=== PATIENT | female | born 1935 | race Caucasian/White ===

== ENCOUNTER 2017-01-29 19:00 | Emergency (ER) | payer MEDICARE, OTHER ==
[2017-01-29 19:29] VITALS: BP 165/71
[2017-01-29] MEDS ORDERED: Sulfamethox/Trimethoprim DS 800/160* TAB PO ONE (21:05)
[2017-01-29] MEDS ORDERED: Phenazopyridine TAB* 100 MG PO ONE (21:06)
--- NOTE | 2017-01-29 21:26 | UC ---
Walter Dyer Benjamin, scribed for Jazlyn Yuen MD on 01/29/17 at 2106 . Complaint Female HPI - HPI Summary HPI Summary: 81yo female comes to for recurring UTI symptoms. Pt was dxed with UTI recently and completed the entire course of nitrofurantoin from 01/18 to 01/23. Pt was asymptomatic until yesterday but yesterday, pt noted pressure in bladder, and burning sensation after urination, but not during.Pt called her PCP, but won t be seen until 2 days a from now so decided to come in to get her condition checked out. Pt was fitted for a pessary before the last UTI, but is not currently wearing the pessary but wonders if the UTI is caused by that fitting of the pessary. Pt also reports having extra BM compared to regular. PMHx includes ovarian CA. FHx of breast CA, lung CA, and CAD. - History Of Current Complaint Chief Complaint: UCGU Stated Complaint: FREQUENT AND BURNING URINATION Time Seen by Provider: 01/29/17 20:48 Hx Obtained From: Patient ?: No Onset/Duration: Sudden Onset, Lasting Days - since yesteray, Still Present Timing: Constant Severity Initially: Moderate Severity Currently: Moderate Pain Intensity: 0 Pain Scale Used: 0-10 Numeric Character: Burning Aggravating Factor(s): Urination Alleviating Factor(s): Nothing Associated Signs And Symptoms: Positive: Negative Related Hx: Similar Episode/Dx as: - UTI - Risk Factors Ectopic Risk Factor: Negative Ovarian Torsion Risk Factor: Ovarian Cysts/Tumors - Allergies/Home Medications Allergies/Adverse Reactions: Allergies Allergy/AdvReac Type Severity Reaction Status Date / Time Codeine Allergy Severe HANDS Verified 01/29/17 19:29 ITCHING Penicillins Allergy Severe HANDS Verified 01/29/17 19:29 ITCHING Home Medications: Home Medications Amlodipine Besylate [Norvasc 10 mg tab] 10 mg PO DAILY 01/29/17 [History Confirmed 01/29/17] PMH/Surg Hx/FS Hx/Imm Hx Previously Healthy: No Cardiovascular History: Hypertension Cancer History: Other Other Cancer History: ovarian cancer - Surgical History Surgical History: Yes Surgery Procedure, Year, and Place: total hysterectomy,[facility] [place] - Family History Known Family History: Positive: Cardiac Disease, Other - breast and lung CA - Social History Occupation: Employed Full-time - still works as a [employer] Lives: Alone Alcohol Use: Rare Substance Use Type: None Smoking Status (MU): Former Smoker When Did the Patient Quit Smoking/Using Tobacco: when she was 21 yrs old - Immunization History Most Recent Influenza Vaccination: 2600-1127 Season Review of Systems Constitutional: Negative Skin: Negative Eyes: Negative ENT: Negative Respiratory: Negative Cardiovascular: Negative Gastrointestinal: Negative Genitourinary: Dysuria, Frequency Motor: Negative Neurovascular: Negative Musculoskeletal: Negative Neurological: Negative Psychological: Negative All Other Systems Reviewed And Are Negative: Yes Physical Exam Triage Information Reviewed: Yes Appearance: Well-Appearing, No Pain Distress, Well-Nourished Vital Signs: Initial Vital Signs Temp 98.2 F 01/29/17 19:28 Pulse 86 01/29/17 19:28 Resp 16 01/29/17 19:28 BP 165/71 01/29/17 19:28 Pulse Ox 98 01/29/17 19:28 Vital Signs Reviewed: Yes Eyes: Positive: Conjunctiva Clear ENT: Positive: Normal ENT inspection, Hearing grossly normal. Negative: Muffled /hoarse voice Neck: Positive: Supple, Nontender Respiratory: Positive: Lungs clear, Normal breath sounds, No respiratory distress Cardiovascular: Positive: RRR, No Murmur, Pulses Normal Abdomen Description: Positive: Nontender, No Organomegaly, Soft. Negative: CVA Tenderness (R), CVA Tenderness (L), Distended, Guarding, Hepatomegaly, McBurney' s Point Tenderness, Peritoneal Signs, Pulsatile Mass, Splenomegaly Bowel Sounds: Positive: Present Musculoskeletal: Positive: Strength Intact, ROM Intact Neurological: Positive: Alert, Muscle Tone Normal Psychological: Positive: Age Appropriate Behavior Skin Exam: Normal Skin: Negative: rashes Diagnostics - Laboratory Diagnostic Studies Completed/Ordered: UA: positive for protein, blood, and leukocyte esterase, otherwise normal urine. Complaint Female Dx - Course Course Of Treatment: High blood pressure noted. Allergies noted. 81yo female with recent dx of UTI on 01/17/17 presents with recurring symptoms since yesterday. Pt reports burning dysuria after voiding and pressure in her bladder. Pt has completed 7-day nitrofurantoin abx tx on 01/23/17. Pt denies pain anywhere. Examination does not reveal any significant findings. No CVA tenderness was noted. UA will be ordered to make an appropriate medical decision. urine is positive for protein, blood, and leukocyte esterase, otherwise normal. Pt will be discharged with a rx of Bactrim and Pyridium. Pt was advise to complete the course of her rx'ed abx. - Differential Dx/Diagnosis Differential Diagnosis/HQI/PQRI: Urinary Tract Infection, Other - cystocele Provider Diagnoses: Blood pressure under poor control. UTI. Discharge - Discharge Plan Condition: Stable Disposition: HOME Prescriptions: Phenazopyridine TAB* [Pyridium 100 mg TAB*] 100 mg PO TID #15 tab Sulfamethox/Trimethoprim DS* [Bactrim DS 800/160 TAB*] 1 tab PO BID #14 tab Patient Education Materials: Urinary Tract Infection in Women (ED) Referrals: Amanda Sutton NP [Primary Care Provider] - 2 Days (follow up regarding today's visit and have your blood pressure rechecked which was elevated tonight at 165/ 71) Additional Instructions: You were given your first dose of Bactrim DS antibiotic tonight and one pill of phenazopyridine 100mg which is a bladder anesthetic and turns the urine orange and helps with pain with urination. Please finish all of the Bactrim antibiotic (trimethoprim-sulfamethoxazole). You may save a few of the phenazopyridine to use if you get another UTI. You can safely take this before seeing a doctor for a UTI and it does not ruin the urine culture results. Thank you for helping us improve patient care by filling out the My Point Survey. RETURN TO URGENT CARE FOR ANY NEW OR WORSENING SYMPTOMS The documentation as recorded by the Walter salinas Benjamin accurately reflects the service I personally performed and the decisions made by me, Jazlyn Yuen MD.
== END 2017-01-29 21:20 | disposition home or self-care (01) ==
LOC: UCEAST 19:00
DX: N39.0 Urinary tract infection, site not specified (principal); I10 Essential (primary) hypertension; Z87.440 Personal history of urinary (tract) infections; Z85.43 Personal history of malignant neoplasm of ovary; Z90.710 Acquired absence of both cervix and uterus; Z88.5 Allergy status to narcotic agent; Z88.0 Allergy status to penicillin; Z87.891 Personal history of nicotine dependence
CPT/HCPCS: 81003; 87077; 87086; 87186; 99212; A9270-GY; G0463

== ENCOUNTER 2017-08-29 16:14 | Emergency (ER) | payer MEDICARE, OTHER ==
[2017-08-29 16:26] VITALS: BP 154/51
--- NOTE | 2017-08-29 17:27 | RAD ---
INDICATION: Chest pain and fever for 2 days. Congestion. COMPARISON: June 26, 2014 TECHNIQUE: Dual energy PA and routine lateral views of the chest were obtained. REPORT: Airspace consolidation at the RIGHT middle lobe without volume loss. Negative for pleural effusions. Elevated lung volumes. Rarefaction of the upper lung zone interstitial markings. Negative for pneumothorax. Cardiomegaly. Unremarkable central pulmonary vasculature. Moderately tortuous descending thoracic aorta. IMPRESSION: RIGHT middle lobe consolidation suspicious for pneumonia given the clinical context. Stigmata of chronic obstructive pulmonary disease and emphysema.
--- NOTE | 2017-08-29 17:55 | UC ---
Respiratory Complaint HPI - HPI Summary HPI Summary: c/o post nasal drip, fever and right chest pain behind her right breast for the past 2 days. DEnies SOB, CP palpitations. History of tobacco use in the past. Currently taking losartan, amlodipine and Zoloft for HTN and insomnia respectively. - History of Current Complaint Chief Complaint: UCGeneralIllness Stated Complaint: CONGESTED,FEVER Time Seen by Provider: 08/29/17 16:26 Hx Last Menstrual Period: post menopausal - Allergies/Home Medications Allergies/Adverse Reactions: Allergies Allergy/AdvReac Type Severity Reaction Status Date / Time Codeine Allergy Severe HANDS Verified 08/29/17 16:28 ITCHING Penicillins Allergy Severe HANDS Verified 08/29/17 16:28 ITCHING Home Medications: Home Medications Calcium Carbonate (Antacid) [Calcium Carbonate] 500 mg PO BID 08/29/17 [History Confirmed 08/29/17] Diphenhydramine-Acetaminophen [Tylenol Pm Extra Strength 500-25 mg] 2 tab PO DAILY 08/29/17 [History Confirmed 08/29/17] Kjqtcfijayiea-Pumynhgpic-Mbbur [Nyquil Severe Cold/Flu 5-6.25-10-325 mg/15Ml] 1 liq PO QPM PRN 08/29/17 [History Confirmed 08/29/17] Vitamin B2 100 mg PO DAILY 08/29/17 [History Confirmed 08/29/17] PMH/Surg Hx/FS Hx/Imm Hx Previously Healthy: Yes Cardiovascular History: Hypertension Psychological History: Other - insomnia Other Psychological History: insomnia - Surgical History Surgical History: Yes Surgery Procedure, Year, and Place: total hysterectomy,[facility] [place]. D&C - Family History Known Family History: Positive: Cardiac Disease, Other - breast and lung CA - Social History Alcohol Use: Rare Substance Use Type: None Smoking Status (MU): Former Smoker When Did the Patient Quit Smoking/Using Tobacco: when she was 21 yrs old - Immunization History Most Recent Influenza Vaccination: 2017 Review of Systems Constitutional: Fever Eyes: Negative ENT: Nasal Discharge Cardiovascular: Negative Gastrointestinal: Negative Is Patient Immunocompromised?: No All Other Systems Reviewed And Are Negative: Yes Physical Exam Triage Information Reviewed: Yes Appearance: Well-Appearing Vital Signs: Initial Vital Signs Temp 100.0 F 08/29/17 16:20 Pulse 94 08/29/17 16:20 Resp 18 01/05/18 16:20 BP 154/51 08/29/17 16:20 Pulse Ox 97 08/29/17 16:20 Vital Signs Reviewed: Yes Eye Exam: Normal ENT Exam: Other - cerumen b/l uses hearing aids ENT: Positive: Pharynx normal Neck exam: Normal Respiratory Exam: Normal Cardiovascular Exam: Normal Abdominal Exam: Normal UC Diagnostic Evaluation - Laboratory O2 Sat by Pulse Oximetry: 97 Respiratory Course/Dx - Course Course Of Treatment: CXR shows consolidation right lung. Will start antibiotics , rest and PO fluids, complete course of medication and follow up with primary care provider - Differential Dx/Diagnosis Provider Diagnoses: Right pneumonia. Cardiomegaly. COPD Discharge - Discharge Plan Condition: Stable Disposition: HOME Patient Education Materials: Bacterial Pneumonia (ED), COPD (Chronic Obstructive Pulmonary Disease) (ED) Referrals: Christi Richmond MD [Primary Care Provider] -
== END 2017-08-29 18:05 | disposition home or self-care (01) ==
LOC: UCEAST 16:14
DX: J18.9 Pneumonia, unspecified organism (principal); I51.7 Cardiomegaly; J44.9 Chronic obstructive pulmonary disease, unspecified; I10 Essential (primary) hypertension; G47.00 Insomnia, unspecified; Z88.5 Allergy status to narcotic agent; Z88.0 Allergy status to penicillin; Z87.891 Personal history of nicotine dependence
CPT/HCPCS: 71046; 87502; 99212; G0463

== ENCOUNTER 2018-02-16 10:22 | Emergency (ER) | payer MEDICARE, OTHER ==
[2018-02-16 10:35] VITALS: BP 153/78
--- NOTE | 2018-02-16 10:46 | UC ---
Eye Complaint HPI - HPI Summary HPI Summary: stye right lower eye lid for 3 days---has been using warm compresses-this morning it look "worse" than other days not has a purulent head. - History of Current Complaint Chief Complaint: UCEye Stated Complaint: RIGHT EYE COMPLAINT Time Seen by Provider: 02/16/18 10:35 Hx Obtained From: Patient Hx Last Menstrual Period: post menopausal ?: No Onset/Duration: Sudden Onset, Lasting Days - 3 Timing: Constant Severity Initially: Mild Severity Currently: Mild Location of Injury: Eye Lid (lower) Aggravating Factor(s): Nothing Alleviating Factor(s): Nothing Associated Signs And Symptoms: Positive: Swelling - Allergies/Home Medications Allergies/Adverse Reactions: Allergies Allergy/AdvReac Type Severity Reaction Status Date / Time codeine Allergy Intermediate Itching Verified 11/17/17 09:09 Penicillins Allergy Intermediate Itching Verified 11/17/17 09:09 PMH/Surg Hx/FS Hx/Imm Hx Previously Healthy: No Cardiovascular History: Hypertension Psychological History: Depression - Surgical History Surgical History: Yes Surgery Procedure, Year, and Place: total hysterectomy,[facility] [place]. D&C - Family History Known Family History: Positive: Cardiac Disease, Other - breast and lung CA - Social History Occupation: Retired Lives: With Family Alcohol Use: Occasionally Substance Use Type: None Smoking Status (MU): Former Smoker When Did the Patient Quit Smoking/Using Tobacco: when she was 21 yrs old - Immunization History Most Recent Influenza Vaccination: 2017 Review of Systems Constitutional: Negative Skin: Negative Eyes: Negative, Other - stye below lashes lower medial aspect of right eye ENT: Negative Respiratory: Negative Cardiovascular: Negative Gastrointestinal: Negative Genitourinary: Negative Motor: Negative Neurovascular: Negative Musculoskeletal: Negative Neurological: Negative Psychological: Negative Is Patient Immunocompromised?: No All Other Systems Reviewed And Are Negative: Yes Physical Exam Triage Information Reviewed: Yes Appearance: Well-Appearing, No Pain Distress, Well-Nourished Vital Signs: Initial Vital Signs Temp 98.3 F 02/16/18 10:30 Pulse 80 02/16/18 10:30 Resp 16 02/16/18 10:30 BP 153/78 02/16/18 10:30 Pulse Ox 98 02/16/18 10:30 Vital Signs Reviewed: Yes Eye Exam: Other Eyes: Positive: Conjunctiva Clear - left, Other: - 3 mm erthema below lashes medially right eye--has 1 mm purulent center ENT Exam: Normal ENT: Positive: Normal ENT inspection, Hearing grossly normal. Negative: Nasal congestion, Trismus, Muffled voice, Hoarse voice Dental Exam: Normal Neck exam: Normal Neck: Positive: Supple, Nontender Respiratory Exam: Normal Respiratory: Positive: Chest non-tender, No respiratory distress, No accessory muscle use Cardiovascular Exam: Normal Cardiovascular: Positive: RRR, Pulses Normal, Brisk Capillary Refill Musculoskeletal Exam: Normal Musculoskeletal: Positive: Strength Intact, ROM Intact, No Edema Neurological Exam: Normal Neurological: Positive: Alert, Muscle Tone Normal Psychological Exam: Normal Skin Exam: Normal Eye Complaint Course/Dx - Course Course Of Treatment: warm compress may use erythomycin eye ointment, follow with Dr. Boss if not resolved in 2-3 days, follow blood pressure with pcp - Differential Dx/Diagnosis Provider Diagnoses: Stye right lower lid, hypertension in poor control Discharge - Sign-Out/Discharge Documenting (check all that apply): Discharge/Admit/Transfer - Discharge Plan Condition: Stable Disposition: HOME Prescriptions: Erythromycin OPTH OINT* [Erythromycin 0.5% OPTH OINT*] 1 applic RIGHT EYE TID # 1 ophth.oint Patient Education Materials: Stye (ED), Hypertension (ED), Warm Compress or Soak (ED) Referrals: Porfirio Boss MD [Medical Doctor] - 4 Days Christi Richmond MD [Primary Care Provider] - 2 Weeks - Billing Disposition and Condition Condition: STABLE Disposition: Home
== END 2018-02-16 10:51 | disposition home or self-care (01) ==
LOC: UCEAST 10:22
DX: H00.022 Hordeolum internum right lower eyelid (principal); I10 Essential (primary) hypertension; Z88.0 Allergy status to penicillin; Z88.5 Allergy status to narcotic agent; Z87.891 Personal history of nicotine dependence
CPT/HCPCS: 99212; G0463

== ENCOUNTER 2018-05-30 09:37 | Emergency (ER) | payer MEDICARE, OTHER ==
--- OUTSIDE RECORDS SUMMARY | 2018-05-30 09:43 | XMS REPORT ---
:1935 External Reference #:[id number] Author Organization [employer] Address [address] [facility] [place] [address] Phone [phone] Care Team Providers Name Role Phone Christi Richmond MD Care Team Information Car Examiner Unavailable Christi Richmond MD Primary Care Physician Unavailable Payers Type Date Identification Numbers Payment Provider Subscriber Commercial Policy Number: [id number] Amer Prog/Todays Options Zena Power PayID: [id number] [address] [address] Attn: [place] [address] Medigap Part B Effective: Policy Number: [employer] Zena [employer] 2014 [id number] Group Number: [id number] [address] PayID: [id number] [place] [address] Commercial Effective: Policy Number: Amer Prog/Todays Zena [employer] 2010 [id number] Options Expires: 2015 Group Number: [id number] [address] [address] PayID: [id number] Attn: [place] [address] Medigap Part B Expires: 2014 Policy Number: [employer] Avery Power [id number] Group Number: [id number] [address] PayID: [id number] [place] [address] Advance Directives Type Date Description Status Comment Other Directive 10/23/2014 Health Care Proxy Current and Verified Problems Date Description Provider Status Onset: 09/15/2015 Essential hypertension Flako Vicente M.D. Active Onset: 02/13/2010 Pure hypercholesterolemia Lacy Metcalf M.D., FACP Active Onset: 02/13/2010 Malignant tumor of ovary Lacy Metcalf M.D., EMMANUELP Active Family History Date Family Member(s) Problem(s) Comments General Heart Disease General Cancer : (age 92 Father due to Natural Years) Causes Father Depression Age 92 Mother Age 102 Mother 99 First Daughter 57 Second Daughter 55 Siblings 8 Siblings Brother Heart disease, due to [place] Brother - Lung Cancer Sister - Breast Cancer : (age 77 First Brother due to Cancer, 1 Brother - Years) Lung [place] (Age 75) First Sister Cancer, Breast : (age 70 First Sister due to Cancer, Years) Breast Second Sister Cancer, Breast Second Sister 69 Social History Type Date Description Comments Marital Status Lives With Alone 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 Do you have problems with snoring, daytime fatigue: no snoring , no daytime fatigue. Allergies, Adverse Reactions, Alerts Date Description Reaction Status Severity Comments 02/09/2010 Penicillin pt unsure active has used since without problems 02/09/2010 Tylenol W/Codeine pt unsure, itching active has used since hands without problems Medications Medication Date Status Form Strength Qnty SIG Indications Ordering Provider Losartan 11/19 Active Tablets 100-25mg 30tab 1 by I10 Potassium/Hydrochloro /2017 s mouth Varn, thiazide every N.P. day Amlodipine Besylate 09/18 Active Tablets 10mg 90tab Take 1 I10 s Tablet Varn, By Mouth N.P. Every Day Sertraline HCL 02/09 Active Tablets 50mg 90tab Take 1 s Tablet Varn, By Mouth N.P. Daily Multi-Vitamin Active Tablets 1 po qd Unknown / Vitamin B Complex Active Capsules 1 po qd Unknown / Calcium Active Tablets 500mg bid Unknown / Glucosamine Active Capsules 1500mg po qd Unknown Chondroitin Complex /0000 Cranberry Extract Active Capsules 100mg once Unknown / daily Aspirin Adult Low Active Chewtabs 81mg 90uni 1 po qd Unknown Strength ts Tylenol PM Active Tablets 2 Unknown / tablets at bedtime [place] 3 Active Capsules 1200mg po qd Unknown Vitamin D-1000 Active Tablets 1000Unit 1 po qd Unknown Coq-10 Active Capsules 100mg 1 by Unknown / mouth every day Vitamin B-2 Active Tablets 100mg qd Unknown Biotin Active Capsules 5000mcg 1 tab Unknown daily otc Erythromycin 02/16 Hx Ointment 5mg/GM 1unit Three s Times - Daily 03/17 Belsomra 05/01 Hx Tablets 10mg 30tab one by G47.00 s mouth at Varn, - bedtime N.P. 10/29 needed sleep Vicodin 07/24 Hx Tablets 5-300mg 30tab take 1 s by mouth Varn, - every 6 N.P. 08/07 hours needed Rozerem 03/20 Hx Tablets 8mg 15tab one by s mouth at Varn, - bedtime N.P. 09/13 needed sleep Vistaril 03/14 Hx Capsules 25mg 30cap One po 780.52 s hs Varn, - N.P. 03/20 Amlodipine Besylate 11/29 Hx Tablets 5mg 90tab 1 by I10 s mouth Varn, - every N.P. Losartan Potassium 11/14 Hx Tablets 100mg 90tab Take 1 I10 s Tablet Varn, - By Mouth N.P. 03/17 Day Azithromycin 08/19 Hx Tablets 250mg 6tabs 2 tab by 466.0 mouth Devin, - day 1 M.D. 09/08 then tab by mouth day 2-5 Altace 08/12 Hx Capsules 2.5mg 30cap take 1 401.1 s capsule Devin, - by mouth M.D. 09/08 daily Lisinopril 08/12 Hx Tablets 2.5mg 30tab 1 by 401.1 s mouth Varn, - every N.P. Hydrochlorothiazide 01/05 Hx Tablets 25mg 135ta 1 by 401.1 bs mouth Tea, - every M.D., 09/06 day Atorvastatin Calcium 05/24 Hx Tablets 10mg 45tab 1/2 by 272.0 s mouth Tea, - every M.D., 11/[address] [facility] bedtime Ergocalciferol 02/02 Hx Capsules [id number] 8caps 1 cap by 268.9 mouth Tea, - every M.D., 01/05 week Simvastatin 10/30 Hx Tablets 10mg 90tab Take 1 272.0 s Tablet Tea, - AT M.D., 05/24 Bedtime Sulfamethoxazole/Trim 10/19 Hx Tablets 800-160mg 20tab one po 599.0 Amanda ethoprim s bid for Varn, - 10 days N.P. 10/29 Mycelex Troches 11/14 Hx 20uni Use as 112.0 ts directed Tea, - . M.D., 01/29 Azithromycin 06/12 Hx Tablets 250mg 1ZPac two tabs k day one, Tea, - one M.D., 06/17 daily till gone Flovent HFA 06/12 Hx Aerosol 44mcg/Act 10.60 2 puffs 0gm twice Tea, - daily M.D., 11/14 Zocor 02/09 Hx Tablets 10mg 90tab 1 tablet s at Tea, - bedtime M.D., 10/30 Fosamax D 02/09 Hx Tablets 70mg 12tab one s tablet Tea, - weekly M.D., 02/13 Levofloxacin Hx Tablets 500mg take 1 Unknown /0000 tablet - by mouth 09/04 daily for 7 days Medications Administered in Office Medication Date Status Form Strength Qnty SIG Indications Ordering Provider Technetium TC Administered Injection Flako Hernandez 99M 018 Bam Vicente Tetrofosmin, Per Unit Dose Up To 40 Millicuries Immunizations CPT Code Status Date Vaccine Lot # [id number] Given 04/30/2017 Flu Vaccine NOS Q2039 Given 05/29/2016 Flu Vaccine NOS [id number] Given 03/14/2015 Pneumococcal Conjugate Vaccine 13 Valent For [id number] Intramuscular Use 38696 Given 06/24/2014 Fluzone High Dose 58822 Given 05/24/2013 Flu Vaccine Split Virus Preservative Free For [id number] Indiv 3Yr Older 74798 Given 02/02/2013 Tdap - Tetanus/Diptheria/Acellular Pertussis [id number] Q2038 Given 05/20/2012 Fluzone Vaccine [id number] Q2038 Given 06/03/2011 Fluzone Vaccine [id number] 68614 Given 06/12/2010 Influenza Virus 3Yrs & Over 02202 Given 09/04/2009 Influenza Virus Vaccine, Pandemic Formulation 25842 Given 05/29/2009 Influenza Virus 3Yrs & Over 02823 Given 06/13/2008 Influenza Virus 3Yrs & Over 87167 Given 06/13/2008 Influenza Virus 3Yrs & Over 44738 Given 01/12/2008 Zoster (Zostavax) 50017 Given 06/08/2007 Influenza Virus 3Yrs & Over 61027 Given 06/08/2007 Influenza Virus 3Yrs & Over 95693 Given 06/23/2006 Influenza Virus 3Yrs & Over 98621 Given 06/23/2006 Influenza Virus 3Yrs & Over Vital Signs Date Vital Result Comment 05/05/2018 Height 60 inches 5'0" Weight 143.00 lb Heart Rate 70 /min BP Systolic Sitting 130 mmHg BP Diastolic Sitting 68 mmHg Body Temperature 98.4 F O2 % BldC Oximetry 96 % BMI (Body Mass Index) 27.9 kg/m2 03/18/2018 Weight 144.00 lb Heart Rate 68 /min BP Systolic Sitting 130 mmHg lue reg cuff BP Diastolic Sitting 60 mmHg lue reg cuff BP Systolic Standing 124 mmHg BP Diastolic Standing 62 mmHg Respiratory Rate 16 /min Ejection Fraction 60-65% 10/07/2017 echo 11/19/2017 Weight 144.00 lb Heart Rate 67 /min BP Systolic 140 mmHg BP Diastolic 60 mmHg Body Temperature 98.1 F O2 % BldC Oximetry 95 % 10/29/2017 Weight 146.00 lb Heart Rate 71 /min BP Systolic 162 mmHg BP Diastolic 60 mmHg Body Temperature 97.4 F O2 % BldC Oximetry 94 % 10/15/2017 Height 59 inches 4'11" Weight 148.00 lb with out shoes Heart Rate 76 /min BP Systolic Sitting 118 mmHg Rue reg cuff BP Diastolic Sitting 74 mmHg Rue reg cuff BP Systolic Standing 120 mmHg Rue reg cuff BP Diastolic Standing 62 mmHg Rue reg cuff Respiratory Rate 17 /min BMI (Body Mass Index) 29.9 kg/m2 Ejection Fraction 60-65% date 10/07/17 ECHO 09/10/2017 Height 59 inches 4'11" Weight 144.00 lb No shoes Heart Rate 66 /min BP Systolic Sitting 138 mmHg Rue lrg cuff BP Diastolic Sitting 64 mmHg Rue lrg cuff BP Systolic Standing 132 mmHg Rue lrg cuff BP Diastolic Standing 64 mmHg Rue lrg cuff Respiratory Rate 15 /min BMI (Body Mass Index) 29.1 kg/m2 Ejection Fraction 55-60% 07/11/2014-echo 05/01/2017 Height 60 inches 5'0" Weight 147.00 lb Heart Rate 71 /min BP Systolic 130 mmHg BP Diastolic 70 mmHg Body Temperature 98.4 F O2 % BldC Oximetry 97 % BMI (Body Mass Index) 28.7 kg/m2 12/11/2016 Weight 144.00 lb Heart Rate 90 /min BP Systolic 158 mmHg BP Diastolic 72 mmHg Body Temperature 97.9 F O2 % BldC Oximetry 97 % 10/15/2016 Height 60 inches 5'0" Weight 148.00 lb Heart Rate 76 /min BP Systolic 136 mmHg BP Diastolic 80 mmHg Body Temperature 97.8 F O2 % BldC Oximetry 95 % BMI (Body Mass Index) 28.9 kg/m2 09/13/2016 Height 60 inches 5'0" Weight 145.00 lb with shoes Heart Rate 70 /min BP Systolic Sitting 158 mmHg Rue reg cuff BP Diastolic Sitting 60 mmHg Rue reg cuff BP Systolic Standing 140 mmHg Rue reg cuff BP Diastolic Standing 64 mmHg Rue reg cuff Respiratory Rate 17 /min BMI (Body Mass Index) 28.3 kg/m2 Ejection Fraction 55-60% date 07/11/2014 ECHO 05/24/2016 Height 60 inches 5'0" Weight 147.00 lb BP Systolic 118 mmHg BP Diastolic 76 mmHg Pain Level 0 BMI (Body Mass Index) 28.7 kg/m2 04/11/2016 Height 60 inches 5'0" Weight 144.50 lb Heart Rate 73 /min BP Systolic Sitting 138 mmHg BP Diastolic Sitting 66 mmHg O2 % BldC Oximetry 98 % BMI (Body Mass Index) 28.2 kg/m2 01/08/2016 Height 59.5 inches 4'11.50" Weight 147.00 lb Heart Rate 84 /min BP Systolic Sitting 128 mmHg BP Diastolic Sitting 60 mmHg Respiratory Rate 15 /min Body Temperature 98.0 F O2 % BldC Oximetry 98 % BMI (Body Mass Index) 29.2 kg/m2 10/19/2015 Height 59.5 inches 4'11.50" Weight 149.00 lb Heart Rate 84 /min BP Systolic Sitting 132 mmHg BP Diastolic Sitting 82 mmHg Respiratory Rate 15 /min Body Temperature 98.3 F O2 % BldC Oximetry 98 % BMI (Body Mass Index) 29.6 kg/m2 09/18/2015 Height 59.5 inches 4'11.50" Weight 147.00 lb Heart Rate 68 /min BP Systolic Sitting 130 mmHg BP Diastolic Sitting 80 mmHg Respiratory Rate 15 /min Body Temperature 98.0 F O2 % BldC Oximetry 98 % BMI (Body Mass Index) 29.2 kg/m2 09/15/2015 Height 59.5 inches 4'11.50" Weight 146.00 lb w/o shoes Heart Rate 70 /min reg BP Systolic Sitting 126 mmHg Rue, reg cuff BP Diastolic Sitting 84 mmHg Rue, reg cuff BP Systolic Standing 122 mmHg Rue BP Diastolic Standing 78 mmHg Rue Respiratory Rate 16 /min BMI (Body Mass Index) 29.0 kg/m2 Ejection Fraction 55-60% 07/11/14 echo 07/24/2015 BP Systolic Sitting 150 mmHg BP Diastolic Sitting 65 mmHg Body Temperature 98.4 F Pain Level 3 O2 % BldC Oximetry 97 % 03/14/2015 Height 60.25 inches 5'0.25" Weight 144.00 lb Heart Rate 65 /min BP Systolic Sitting 136 mmHg BP Diastolic Sitting 57 mmHg BMI (Body Mass Index) 27.9 kg/m2 11/29/2014 Weight 144.00 lb Heart Rate 72 /min BP Systolic Sitting 152 mmHg BP Diastolic Sitting 62 mmHg Body Temperature 97.6 F 11/14/2014 Weight 138.00 lb Heart Rate 72 /min BP Systolic Sitting 158 mmHg BP Diastolic Sitting 62 mmHg Body Temperature 97.0 F 09/09/2014 Height 59.75 inches 4'11.75" Weight 138.00 lb no shoes Heart Rate 69 /min BP Systolic 150 mmHg Ra, reg cuff BP Diastolic 82 mmHg Ra, reg cuff BP Systolic Sitting 152 mmHg LA, reg cuff BP Diastolic Sitting 76 mmHg LA, reg cuff BP Systolic Standing 146 mmHg LA BP Diastolic Standing 74 mmHg LA Respiratory Rate 16 /min BMI (Body Mass Index) 27.2 kg/m2 09/09/2014 Height 59.75 inches 4'11.75" Weight 139.75 lb Heart Rate 78 /min BP Systolic Sitting 138 mmHg BP Diastolic Sitting 70 mmHg Body Temperature 98.8 F O2 % BldC Oximetry 98 % BMI (Body Mass Index) 27.5 kg/m2 08/19/2014 Height 59.75 inches 4'11.75" Weight 140.00 lb Heart Rate 70 /min BP Systolic Sitting 132 mmHg BP Diastolic Sitting 60 mmHg Respiratory Rate 24 /min Body Temperature 99.8 F BMI (Body Mass Index) 27.6 kg/m2 08/12/2014 Height 59.75 inches 4'11.75" Weight 139.00 lb Heart Rate 63 /min BP Systolic Sitting 162 mmHg BP Diastolic Sitting 63 mmHg BP Systolic Recheck 150 mmHg BP Diastolic Recheck 67 mmHg BMI (Body Mass Index) 27.4 kg/m2 07/28/2014 Height 59.75 inches 4'11.75" Weight 138.00 lb Heart Rate 62 /min BP Systolic 110 mmHg BP Diastolic 62 mmHg BP Systolic Recheck 138 mmHg BP Diastolic Recheck 68 mmHg Body Temperature 96.9 F BMI (Body Mass Index) 27.2 kg/m2 06/30/2014 Height 59.75 inches 4'11.75" Weight 142.00 lb Heart Rate 68 /min BP Systolic Sitting 138 mmHg BP Diastolic Sitting 62 mmHg BMI (Body Mass Index) 28.0 kg/m2 03/08/2014 Height 59.75 inches 4'11.75" Weight 141.25 lb Heart Rate 64 /min BP Systolic Sitting 150 mmHg BP Diastolic Sitting 60 mmHg BMI (Body Mass Index) 27.8 kg/m2 01/05/2014 Weight 142.00 lb Heart Rate 76 /min BP Systolic Sitting 152 mmHg BP Diastolic Sitting 68 mmHg Body Temperature 98.7 F 05/24/2013 Weight 142.00 lb Heart Rate 70 /min BP Systolic Sitting 128 mmHg BP Diastolic Sitting 80 mmHg 02/02/2013 Height 59.75 inches 4'11.75" Weight 140.00 lb Heart Rate 64 /min BP Systolic Sitting 154 mmHg BP Diastolic Sitting 64 mmHg BMI (Body Mass Index) 27.6 kg/m2 10/19/2012 Height 60 inches 5'0" Weight 139.00 lb Heart Rate 76 /min BP Systolic Sitting 156 mmHg BP Diastolic Sitting 60 mmHg Body Temperature 97.5 F Tympanically BMI (Body Mass Index) 27.1 kg/m2 08/12/2012 Height 60 inches 5'0" Weight 138.00 lb Heart Rate 70 /min BP Systolic Sitting 124 mmHg BP Diastolic Sitting 74 mmHg BMI (Body Mass Index) 26.9 kg/m2 10/01/2011 Height 60 inches 5'0" Weight 142.00 lb Heart Rate 72 /min BP Systolic Sitting 138 mmHg BP Diastolic Sitting 72 mmHg BMI (Body Mass Index) 27.7 kg/m2 01/29/2011 Height 60.25 inches 5'0.25" Weight 140.00 lb Heart Rate 66 /min BP Systolic Sitting 126 mmHg BP Diastolic Sitting 70 mmHg BMI (Body Mass Index) 27.1 kg/m2 11/14/2010 Weight 143.00 lb Heart Rate 64 /min BP Systolic 110 mmHg BP Diastolic 70 mmHg Body Temperature 98.3 F 06/12/2010 Weight 145.50 lb Heart Rate 54 /min BP Systolic 118 mmHg BP Diastolic 76 mmHg Body Temperature 98.1 F Results Test Date Test Result H/L Range Note Lipid Profile (Trig/Chol/HDL) 05/01/2018 Triglycerides 148 mg/dL 1 Cholesterol 233 mg/dL 2 HDL Cholesterol 66.0 mg/dL 3 LDL Cholesterol 137 mg/dL 4 Comp Metabolic Panel 05/01/2018 Sodium 141 mmol/L 135-145 Potassium 4.6 mmol/L 3.5-5.0 Chloride 105 mmol/L 101-111 Co2 Carbon Dioxide 29 mmol/L 22-32 Anion Gap 7 mmol/L 2-11 Glucose 100 mg/dL 70-100 Blood Urea Nitrogen 20 mg/dL 6-24 Creatinine 0.71 mg/dL 0.51-0.95 BUN/Creatinine Ratio 28.2 High 8-20 Calcium 9.6 mg/dL 8.6-10.3 Total Protein 6.8 g/dL 6.4-8.9 Albumin 4.6 g/dL 3.2-5.2 Globulin 2.2 g/dL 2-4 Albumin/Globulin Ratio 2.1 1-3 Total Bilirubin 0.40 mg/dL 0.2-1.0 Alkaline Phosphatase 60 U/L 34-104 Alt 18 U/L 7-52 Ast 27 U/L 13-39 Egfr Non- 78.8 >60 Egfr 95.4 >60 5 Laboratory test finding 11/15/2017 Blood Urea Nitrogen BUN 28 mg/dL High 6 -24 Creatinine 11/15/2017 Creatinine 0.67 mg/dL 0.51-0.95 Egfr Non- 84.5 >60 Egfr 108.6 >60 6 Rapid Influenza A & B 08/29/2017 Influenza A Molecular NEGATIVE Negative 7 Molecular Influenza B Molecular NEGATIVE Negative Laboratory test finding 05/08/2017 CA 125 (Ovarian Cancer Ag) 19.7 U/mL 0 -35 8 Lipid Profile 04/24/2017 Triglycerides 97 mg/dL 9 (Trig/Chol/HDL) Cholesterol 237 mg/dL 10 HDL Cholesterol 69.3 mg/dL 11 LDL Cholesterol 148 mg/dL 12 Comp Metabolic Panel 04/24/2017 Sodium 139 mmol/L 133-145 Potassium 4.6 mmol/L 3.5-5.0 Chloride 103 mmol/L 101-111 Co2 Carbon Dioxide 29 mmol/L 22-32 Anion Gap 7 mmol/L 2-11 Glucose 90 mg/dL 70-100 Blood Urea Nitrogen 21 mg/dL 6-24 Creatinine 0.71 mg/dL 0.51-0.95 BUN/Creatinine Ratio 29.6 High 8-20 Calcium 9.7 mg/dL 8.6-10.3 Total Protein 6.9 g/dL 6.4-8.9 Albumin 4.3 g/dL 3.2-5.2 Globulin 2.6 g/dL 2-4 Albumin/Globulin Ratio 1.7 1-3 Total Bilirubin 0.60 mg/dL 0.2-1.0 Alkaline Phosphatase 58 U/L 34-104 Alt 15 U/L 7-52 Ast 25 U/L 13-39 Egfr Non- 79.0 >60 Egfr 101.6 >60 13 Laboratory test 04/24/2017 TSH (Thyroid Stim 1.33 mcIU/mL 0.34-5.60 14 finding Horm) Urine Culture And 01/29/2017 Urine Culture SEE RESULT BELOW 15, 16 Sensitivities Poc Urinalysis 01/29/2017 Poc Glucose, Negative Negative Urine Poc Bilirubin, Urine Negative Negative Poc Ketone, Urine Negative Negative Poc Specific [place], Urine 1.020 1.010-1.030 Poc Blood, Urine 2+ Negative Poc pH, Urine 7.0 5-9 Poc Protein, Urine 2+ Negative Poc Urobilinogen, Urine 0.2 Negative Poc Nitrite, Urine Negative Negative Poc Leukocytes, Urine 3+ Negative Poc Color, Urine Yellow Poc Clarity, Urine Cloudy 17 Laboratory test finding 04/11/2016 CA 125 (Ovarian Cancer Ag) 21.7 U/mL 0 -35 18 Vitamin D Total 25(Oh) 42.6 ng/mL 30-50 Lipid Profile (Trig/Chol/HDL) 04/08/2016 Triglycerides 89 mg/dL 19 Cholesterol 206 mg/dL 20 HDL Cholesterol 59.7 mg/dL 21 LDL Cholesterol 129 mg/dL 22 Comp Metabolic Panel 04/08/2016 Sodium 139 mmol/L 133-145 Potassium 4.1 mmol/L 3.5-5.0 Chloride 106 mmol/L 101-111 Co2 Carbon Dioxide 27 mmol/L 22-32 Anion Gap 6 mmol/L 2-11 Glucose 92 mg/dL 70-100 Blood Urea Nitrogen 18 mg/dL 6-24 Creatinine 0.72 mg/dL 0.51-0.95 BUN/Creatinine Ratio 25.0 High 8-20 Calcium 9.3 mg/dL 8.6-10.3 Total Protein 6.6 g/dL 6.4-8.9 Albumin 4.1 g/dL 3.2-5.2 Globulin 2.5 g/dL 2-4 Albumin/Globulin Ratio 1.6 1-3 Total Bilirubin 0.30 mg/dL 0.2-1.0 Alkaline Phosphatase 58 U/L 34-104 Alt 16 U/L 7-52 Ast 26 U/L 13-39 Egfr Non- 77.9 >60 Egfr 100.2 >60 23 Laboratory test 04/08/2016 TSH (Thyroid Stim 1.28 mcIU/mL 0.34-5.60 24 finding Horm) Laboratory test 05/11/2015 Cytology Non-Civil Service Worker SEE RESULT BELOW 25 finding Laboratory test 03/28/2015 Vitamin D Total 37.3 ng/mL 30-50 finding 25(Oh) TSH (Thyroid Stim Horm) 1.25 ?IU/mL 0.34-5.60 Laboratory test finding 11/25/2014 Creatine Kinase 89 U/L 10-223 26, 27 Basic Metabolic Panel 11/25/2014 Sodium 142 mmol/L 133-145 26 Potassium 4.1 mmol/L 3.5-5.0 26 Chloride 106 mmol/L 101-111 26 Co2 Carbon Dioxide 29 mmol/L 22-32 26 Anion Gap 7 mmol/L 2-11 26 Glucose 93 mg/dL 70-100 26 Blood Urea Nitrogen 21 mg/dL 6-24 26 Creatinine 0.76 mg/dL 0.51-0.95 26 BUN/Creatinine Ratio 27.6 High 8-20 26 Calcium 9.5 mg/dL 8.6-10.3 26 Egfr Non- 73.6 >60 26 Egfr 94.7 >60 26, 28 Lipid Profile (Trig/Chol/HDL) 11/25/2014 Triglycerides 105 mg/dL 26, 29 Cholesterol 200 mg/dL 26, 30 HDL Cholesterol 64.8 mg/dL 26, 31 LDL Cholesterol 114 mg/dL 26, 32 Laboratory test finding 06/26/2014 Troponin I 0.01 ng/mL <0.03 33 CBC Auto Diff 06/26/2014 White Blood Count 5.3 10^3/uL 4.8-10.8 Red Blood Count 4.03 10^6/uL 4.0-5.4 Hemoglobin 12.5 g/dL 12.0-16.0 Hematocrit 37 % 35-47 Mean Corpuscular Volume 92 fL 80-97 Mean Corpuscular Hemoglobin 31 pg 27-31 Mean Corpuscular HGB Conc 34 g/dL 31-36 Red Cell Distribution Width 13 % 10.5-15 Platelet Count 258 10^3/uL 150-450 Mean Platelet Volume 7 um3 Low 7.4-10.4 Abs Neutrophils 2.9 10^3/uL 1.5-7.7 Abs Lymphocytes 1.6 10^3/uL 1.0-4.8 Abs Monocytes 0.6 10^3/uL 0-0.8 Abs Eosinophils 0.2 10^3/uL 0-0.6 Abs Basophils 0 10^3/uL 0-0.2 Abs Nucleated RBC 0.01 10^3/uL Granulocyte % 54.5 % 38-83 Lymphocyte % 31.1 % 25-47 Monocyte % 10.5 % High 1-9 Eosinophil % 3.1 % 0-6 Basophil % 0.8 % 0-2 Nucleated Red Blood Cells % 0.2 Comp Metabolic Panel 06/26/2014 Sodium 139 mmol/L 133-145 Potassium 3.6 mmol/L Low 3.7-5.6 Chloride 105 mmol/L 101-111 Co2 Carbon Dioxide 27 mmol/L 22-32 Anion Gap 7 mmol/L 2-11 Glucose 104 mg/dL High 70-100 Blood Urea Nitrogen 22 mg/dL 6-24 Creatinine 0.78 mg/dL 0.51-0.95 BUN/Creatinine Ratio 28.2 High 8-20 Calcium 9.1 mg/dL 8.6-10.3 Total Protein 6.3 g/dL Low 6.4-8.9 Albumin 4.1 g/dL 3.2-5.2 Globulin 2.2 g/dL 2-4 Albumin/Globulin Ratio 1.9 1-3 Total Bilirubin 0.30 mg/dL 0.2-1.0 Alkaline Phosphatase 52 U/L 34-104 Alt 18 U/L 7-52 Ast 27 U/L 13-39 Egfr Non- 71.4 >60 Egfr 91.9 >60 34 Laboratory test finding 06/26/2014 Troponin I 0.01 ng/mL <0.03 35 Comp Metabolic Panel 03/11/2014 Sodium 139 mmol/L 133-145 Potassium 3.8 mmol/L 3.7-5.6 Chloride 104 mmol/L 101-111 Co2 Carbon Dioxide 31 mmol/L 22-32 Anion Gap 4 mmol/L 2-11 Glucose 93 mg/dL 70-100 Blood Urea Nitrogen 25 mg/dL High 6-24 Creatinine 0.81 mg/dL 0.51-0.95 BUN/Creatinine Ratio 30.9 High 8-20 Calcium 9.6 mg/dL 8.6-10.3 Total Protein 6.9 g/dL 6.4-8.9 Albumin 4.5 g/dL 3.2-5.2 Globulin 2.4 g/dL 2-4 Albumin/Globulin Ratio 1.9 1-3 Total Bilirubin 0.40 mg/dL 0.2-1.0 Alkaline Phosphatase 49 U/L 34-104 Alt 20 U/L 7-52 Ast 29 U/L 13-39 Egfr Non- 68.4 >60 Egfr 87.9 >60 36 Lipid Profile (Trig/Chol/HDL) 03/11/2014 Triglycerides 83 mg/dL 37 Cholesterol 176 mg/dL 38 HDL Cholesterol 68.6 mg/dL 39 LDL Cholesterol 91 mg/dL 40 Laboratory test finding 03/11/2014 CA 125 Antigen 20.9 U/mL 0-35 Vitamin D, 25 Hydroxy 03/11/2014 25-Hydroxy Vitamin D2 <4.0 ng/mL 25-Hydroxy Vitamin D3 44 ng/mL 25-Hydroxy Vitamin D Total 44 ng/mL 41 Laboratory test finding 03/11/2014 TSH (Thyroid Stimulating 0.90 IU/mL 0.34-5.60 Horm) Liver Function Panel 08/23/2013 Total Protein 6.9 g/dL 6.2-8.1 Albumin 4.3 g/dL 3.2-5.2 Globulin 2.6 g/dL 2-4 Albumin/Globulin Ratio 1.7 1-3 Total Bilirubin 0.7 mg/dL 0.4-1.5 Direct Bilirubin 0.1 mg/dL 0.1-0.5 Indirect Bilirubin 0.6 mg/dL 0.3-1.0 Alkaline Phosphatase 53 U/L 30-110 Alt 29 U/L 14-54 Ast 41 U/L 12-42 Lipid Profile (Trig/Chol/HDL) 08/23/2013 Triglycerides 120 mg/dL 40-200 Cholesterol 214 mg/dL High Less than 200 HDL Cholesterol 85 mg/dL High 40-60 42 Cholesterol/HDL Ratio 2.5 Average 1-4.44 LDL Cholesterol 105.0 High Less Than 100 43 Laboratory test finding 02/04/2013 CA 125 Antigen 15.5 U/mL 2.0-35.0 44 Comp Metabolic Panel 01/28/2013 Sodium 143 mmol/L 133-145 Potassium 4.6 mmol/L 3.5-5.0 Chloride 108 mmol/L 101-111 Co2 Carbon Dioxide 30.0 mmol/L 22-32 Anion Gap 5.0 mmol/L 2-11 Glucose 88 mg/dL 70-100 Blood Urea Nitrogen 18 mg/dL 6-24 Creatinine 0.60 mg/dL 0.50-1.40 BUN/Creatinine Ratio 30.0 High 8-20 Calcium 10.0 mg/dL High 8.1-9.9 Total Protein 6.4 g/dL 6.2-8.1 Albumin 4.1 g/dL 3.2-5.2 Globulin 2.3 g/dL 2-4 Albumin/Globulin Ratio 1.8 1-3 Total Bilirubin 0.7 mg/dL 0.4-1.5 Alkaline Phosphatase 53 U/L 30-110 Alt 25 U/L 14-54 Ast 33 U/L 12-42 Egfr Non- 97.2 >60 Egfr 125.0 >60 45 Lipid Profile (Trig/Chol/HDL) 01/28/2013 Triglycerides 68 mg/dL 40-200 Cholesterol 179 mg/dL Less than 200 HDL Cholesterol 73 mg/dL High 40-60 46 Cholesterol/HDL Ratio 2.5 Average 1-4.44 LDL Cholesterol 92.4 Less Than 100 47 Laboratory test finding 01/28/2013 TSH (Thyroid Stimulating 1.06 miu/mL 0.34-5.60 48 Horm) Vitamin D, 25 Hydroxy 01/28/2013 25-Hydroxy Vitamin D2 <4.0 ng/mL 25-Hydroxy Vitamin D3 39 ng/mL 25-Hydroxy Vitamin D Total 39 ng/mL 49 Urine Culture And Sensitivities 10/19/2012 Urine Culture (SEE NOTE) 50 Ua Routine 10/19/2012 Ua Specific [place] 1.005 Ua PH 5 Ua Color yellow Ua Appera clear Ua WBC trace Ua Protein negative Ua Glucose negative Ua Ketones negative Ua Bilirubin negative Ua Urobilinogen negative Ua Nitrite negative Ua Occult Blood negative Urine Culture And 10/11/2012 Urine Culture (SEE NOTE) 51 Sensitivities CBC Auto Diff 07/27/2012 White Blood Count 4.9 10^3/uL 4.8-10.8 Red Blood Count 4.26 10^6/uL 4.0-5.4 Hemoglobin 13.1 g/dL 12.0-16.0 Hematocrit 39 % 35-47 Mean Corpuscular Volume 92 fL 80-97 Mean Corpuscular Hemoglobin 31 pg 27-31 Mean Corpuscular HGB Conc 33 g/dL 31-36 Red Cell Distribution Width 14 % 10.5-15 Platelet Count 279 10^3/uL 150-450 Mean Platelet Volume 8 um3 7.4-10.4 Abs Neutrophils 2.6 10^3/uL 1.5-7.7 Abs Lymphocytes 1.8 10^3/uL 1.0-4.8 Abs Monocytes 0.4 10^3/uL 0-0.8 Abs Eosinophils 0.1 10^3/uL 0-0.6 Abs Basophils 0 10^3/uL 0-0.2 Abs Nucleated RBC 0 10^3/uL Granulocyte % 53.5 % 38-83 Lymphocyte % 35.4 % 25-47 Monocyte % 8.1 % 1-9 Eosinophil % 2.0 % 0-6 Basophil % 1.0 % 0-2 Nucleated Red Blood Cells % 0 Laboratory test finding 07/27/2012 Inr 0.94 0.82-1.17 52 CBC Auto Diff 12/30/2011 White Blood Count 6.3 CUMM 4.8-10.8 53 Red Cell Count 4.10 CUMM Low 4.2-5.4 53 Hemoglobin 12.9 g/dL 12.0-16.0 53 Hematocrit 37 % 35-47 53 Mean Corpuscular Volume 91 um3 79-97 53 Mean Corpuscular Hemoglob 31 pg 27-31 53 Mean Corpuscular HGB Cone 34 g/dL 32-36 53 Redcell Distribution WDTH 14 % 10.5-15 53 Platelet Count 273 CUMM 150-450 53 Mean Platelet Volume 8.1 um3 7.4-10.4 53 Gran % 60.1 % 38-83 53 Lymph % 32.2 % 25-47 53 Mononuclear % 6.0 % 1-9 53 Eosinophil % 1.0 % 0-6 53 Basophil % 0.7 % 0-2 53 Abs Lymphs 2.0 1.0-4.8 53 Abs Mononuclear 0.4 0-0.8 53 Absolute Neutrophil Count 3.8 1.5-7.7 53 Abs Eosinophils 0.1 0-0.6 53 Abs Basophils 0 0-0.2 53 Laboratory test finding 12/30/2011 BUN 18 mg/dL 6-24 53 Laboratory test finding 12/30/2011 CA 125 (Ovarian Cancer 17.4 U/mL 2.0- 35.0 53, 54 Ag) Creatinine 12/30/2011 Creatinine 0.7 mg/dL 0.50-1.40 53 One Over Creatinine 1.42 53 eGFR Non- 81.6 > 60 53 eGFR 104.9 > 60 53, 55 Vitamin D, 25 Hydroxy 10/21/2011 25-Hydroxy Vitamin D2 <4.0 ng/mL () 25-Hydroxy Vitamin D3 42 ng/mL () 25-Hydroxy Vitamin D Total 42 ng/mL () 56 Vitamin D 1,25 And 10/21/2011 Vitamin D, 1,25 65 pg/mL 18-78 57 Vitamin D,2 Dihydroxy Laboratory test finding 10/21/2011 C Reactive Protein High 0.6 mg/L Less Than 3 58 Sensit TSH 1.57 MIU/ML 0.34-5.60 Comp Metabolic Panel 10/21/2011 Sodium 139 mmol/L 135-145 Potassium 4.3 mmol/L 3.5-5.0 Chloride 105 mmol/L 101-111 Co2 (Carbon Dioxide) 28.0 mmol/L 22-32 Anion Gap 6.0 mmol/L 2-11 59 Glucose 97 mg/dL 70-100 BUN 18 mg/dL 6-24 Creatinine 0.8 mg/dL 0.50-1.40 One Over Creatinine 1.25 BUN/Creatinine Ratio 22.5 High 8-20 Calcium 9.5 mg/dL 8.1-9.9 Total Protein 6.8 GM/DL 6.2-8.1 Albumin 4.3 GM/DL 3.2-5.2 Globulin 2.5 GM/DL 2-4 Albumin/Globulin Ratio 1.7 1-3 Bilirubin Total 0.6 mg/dL 0.4-1.5 60 Alkaline Phosphatase 61 U/L 30-110 Alt (SGPT) 24 U/L 14-54 Ast (Sgot) 33 U/L 12-42 eGFR Non- 69.9 > 60 eGFR 89.9 > 60 61 Lipid Profile (Trig/Chol/HDL) 10/21/2011 Triglyceride 109 mg/dL 40-200 Cholesterol 201 mg/dL High Less Than 200 62 High Density Lipoprotein 71 mg/dL High 40-60 63 Cholesterol/HDL Ratio 2.83 AVERAGE 1-4.44 Low Density Lipoprotein 108 mg/dL High Less Than 100 64 1 Desirable: <150 Borderline High: 150-199 High: 200-499 Very High: >500 2 Desirable: <200 Borderline High: 200-239 High: >239 3 Low: <40 Desirable: 40-60 High: >60 4 Desirable: <100 Near Optimal: 100-129 Borderline High: 130-159 High: 160-189 Very High: >189 5 Because ethnic data is not always readily available, this report includes an eGFR for both -Americans and non- Americans. The National Kidney Disease Education Program (NKDEP) does not endorse the use of the MDRD equation for patients that are not between the ages of 18 and 70, are , have extremes of body size, muscle mass, or nutritional status, or are non- or non-. According to the National Kidney Foundation, irrespective of diagnosis, the stage of the disease is based on the level of kidney function: Stage Description GFR(mL/min/1.73 m(2)) 1 Kidney damage with normal or decreased GFR 90 2 Kidney damage with mild decrease in GFR 60-89 3 Moderate decrease in GFR 30-59 4 Severe decrease in GFR 15-29 5 Kidney failure <15 (or dialysis) 6 Because ethnic data is not always readily available, this report includes an eGFR for both -Americans and non- Americans. The National Kidney Disease Education Program (NKDEP) does not endorse the use of the MDRD equation for patients that are not between the ages of 18 and 70, are , have extremes of body size, muscle mass, or nutritional status, or are non- or non-. According to the National Kidney Foundation, irrespective of diagnosis, the stage of the disease is based on the level of kidney function: Stage Description GFR(mL/min/1.73 m(2)) 1 Kidney damage with normal or decreased GFR 90 2 Kidney damage with mild decrease in GFR 60-89 3 Moderate decrease in GFR 30-59 4 Severe decrease in GFR 15-29 5 Kidney failure <15 (or dialysis) 7 Cash Room Clerk: [id number] 8 Instrument used is Shirley [email or web address] DXI 600. The assay is a two-site immunoenzymatic "sandwich" assay. Do not interpret CA125 levels as absolute evidence of the presence or the absence of malignant disease. Use in conjunction with information from the clinical evaluation of the patient and other diagnostic procedures. Values obtained with different assay methods cannot be used interchangeably. 9 Desirable <150 Borderline high 150-199 High 200-499 Very High >500 10 Desirable <200 Borderline high 200-239 High >239 11 Low <40 Desirable: 40-60 High: >60 12 Desirable: <100 mg/dL Near Optimal: 100-129 mg/dL Borderline High: 130-159 mg/dL High: 160-189 mg/dL Very High: >189 mg/dL 13 Because ethnic data is not always readily available, this report includes an eGFR for both -Americans and non- Americans. The National Kidney Disease Education Program (NKDEP) does not endorse the use of the MDRD equation for patients that are not between the ages of 18 and 70, are , have extremes of body size, muscle mass, or nutritional status, or are non- or non-. According to the National Kidney Foundation, irrespective of diagnosis, the stage of the disease is based on the level of kidney function: Stage Description GFR(mL/min/1.73 m(2)) 1 Kidney damage with normal or decreased GFR 90 2 Kidney damage with mild decrease in GFR 60-89 3 Moderate decrease in GFR 30-59 4 Severe decrease in GFR 15-29 5 Kidney failure <15 (or dialysis) 14 FASTING 10 HOUR 15 [id number] SEE RESULT BELOW Name: ZENA POWER : [address]: Zena Yuen MD Acct: [id number] Unit: [id number] AGE: 81 Location: [facility] Re01/29/17 SEX: F Status: DEP ER SPEC: [id number] ROCCO: 01/29/[address] [facility] [address]: Zena Yuen MD REQ: [id number] RECD: 01/30/17-1025 STATUS: COMP [facility] DR: Amanda Sutton ABALONE SHELLER _ SOURCE: URINE SPDESC: ORDERED: Urine Culture COMMENTS: [id number] Procedure Result Reported Site Urine Culture Final 02/01/17- 07 ML Organism 1 ESCHERICHIA COLI [place] Count 75-100,000 (Many) CFU/ML 1. ESCHERICHIA COLI M.I.C. RX --------- ------ Ampicillin >=32 R Cefazolin <=4 S Cefepime <=1 S Ceftriaxone <=1 S Ciprofloxacin <=0.25 S Gentamicin <=1 S Levofloxacin <=0.12 S Meropenem <=0.25 S Nitrofurantoin <=16 S Tetracycline >=16 R Pipercillin/Tazobactam <=4 S Trimethoprim/Sulfamethoxazole >=320 R Amoxicillin/Clavulanic Acid 8 S Aztreonam <=1 S Contact the Microbiology Department for any additional antibiotic reporting. * ML - MAIN LAB ([facility]) . END OF REPORT * ML=Testing performed at Main Lab DEPARTMENT OF PATHOLOGY, [address] [place] [address] Dilip Graff M.D. Director [facility] # [id number] 17 Cash Room Clerk: [id number] Instrument used is [employer] DXI 600. The assay is a two-site immunoenzymatic "sandwich" assay. Do not interpret CA125 levels as absolute evidence of the presence or the absence of malignant disease. Use in conjunction with information from the clinical evaluation of the patient and other diagnostic procedures. Values obtained with different assay methods cannot be used interchangeably. 19 Desirable <150 Borderline high 150-199 High 200-499 Very High >500 20 Desirable <200 Borderline high 200-239 High >239 21 Low <40 Desirable: 40-60 High: >60 22 Desirable: <100 mg/dL Near Optimal: 100-129 mg/dL Borderline High: 130-159 mg/dL High: 160-189 mg/dL Very High: >189 mg/dL 23 Because ethnic data is not always readily available, this report includes an eGFR for both -Americans and non- Americans. The National Kidney Disease Education Program (NKDEP) does not endorse the use of the MDRD equation for patients that are not between the ages of 18 and 70, are , have extremes of body size, muscle mass, or nutritional status, or are non- or non-. According to the National Kidney Foundation, irrespective of diagnosis, the stage of the disease is based on the level of kidney function: Stage Description GFR(mL/min/1.73 m(2)) 1 Kidney damage with normal or decreased GFR 90 2 Kidney damage with mild decrease in GFR 60-89 3 Moderate decrease in GFR 30-59 4 Severe decrease in GFR 15-29 5 Kidney failure <15 (or dialysis) 24 FASTING 10 HOUR 25 SEE RESULT BELOW Name: ZENA POWER : [address]: Benigno Quiles MD Acct: [id number] Unit: [id number] AGE: 80 Location: THYROID Re05/11/15 SEX: F Status: REG REF SPEC: [id number] ROCCO: 05/11/[address] [facility] [address]: Mukund Darden MD REQ: [id number] RECD: 05/11/15 STATUS: SUSHILA PALACIOS DR: Benigno Sutton ABALONE SHELLER _ ORDERED: FN ASP DEEP, FNA Imme St Add, FNA IMMEDIATE S FINAL DIAGNOSIS Thyroid, left, Ultrasound guided, fine needle aspiration: Benign thyroid nodule- involutional type. The specimen demonstrates moderate watery proteinaceous fluid, a moderate amount of benign appearing follicular epithelium arranged in uniform sheets, medium sized follicles and only occasional small groups. Abundant pigmented and non-pigmented macrophages are seen in the background. No features of papillary carcinoma are seen. In this clinical setting the risk of malignancy is less than 3%. Clinical management of this thyroid nodule should be based on clinical and radiographic features as well as the above findings. THYROID LEFT - US GUIDED FINE NEEDLE ASPIRATION CLINICAL HISTORY Left nodule 2.6x 1.8x 2.1cm IMMEDIATE INTERPRETATION Pass 1-Inadequate Pass 2-adequate CONTINUED ON NEXT PAGE * ML=Testing performed at Main Lab DEPARTMENT OF PATHOLOGY, [address] [place] [address] Dilip Graff M.D. Director [facility] # [id number] RUN DATE: 05/11/15 [facility] [place] LAB LIVE PAGE 2 Patient: ZENA POWER [id number] (Continued) GROSS DESCRIPTION (Continued) GROSS DESCRIPTION 7- alcohol fixed slide(s) 2 - passes Signed (signature on file) Carmel Delvalle MD [id number] END OF REPORT * ML=Testing performed at Main Lab DEPARTMENT OF PATHOLOGY, [address] [place] [address] Dilip Graff M.D. Director [facility] # [id number] 26 PT IS FASTING 27 PT IS FASTING 28 Because ethnic data is not always readily available, this report includes an eGFR for both -Americans and non- Americans. The National Kidney Disease Education Program (NKDEP) does not endorse the use of the MDRD equation for patients that are not between the ages of 18 and 70, are , have extremes of body size, muscle mass, or nutritional status, or are non- or non-. According to the National Kidney Foundation, irrespective of diagnosis, the stage of the disease is based on the level of kidney function: Stage Description GFR(mL/min/1.73 m(2)) 1 Kidney damage with normal or decreased GFR 90 2 Kidney damage with mild decrease in GFR 60-89 3 Moderate decrease in GFR 30-59 4 Severe decrease in GFR 15-29 5 Kidney failure <15 (or dialysis) 29 Desirable <150 Borderline high 150-199 High 200-499 Very High >500 30 Desirable <200 Borderline high 200-239 High >239 31 Low <40 Desirable: 40-60 High: >60 32 Desirable: <100 mg/dL Near Optimal: 100-129 mg/dL Borderline High: 130-159 mg/dL High: 160-189 mg/dL Very High: >189 mg/dL 33 Reference Range and Interpretation: TnI (ng/mL) Interpretation Less Than 0.03 ng/mL Not supportive of diagnosis of [place] 0.03 - 0.50 ng/mL Indeterminate: suggest serial studies if clinically indicated. Greater than 0.5 ng/mL Consistent with diagnosis of [place] 34 Because ethnic data is not always readily available, this report includes an eGFR for both -Americans and non- Americans. The National Kidney Disease Education Program (NKDEP) does not endorse the use of the MDRD equation for patients that are not between the ages of 18 and 70, are , have extremes of body size, muscle mass, or nutritional status, or are non- or non-. According to the National Kidney Foundation, irrespective of diagnosis, the stage of the disease is based on the level of kidney function: Stage Description GFR(mL/min/1.73 m(2)) 1 Kidney damage with normal or decreased GFR 90 2 Kidney damage with mild decrease in GFR 60-89 3 Moderate decrease in GFR 30-59 4 Severe decrease in GFR 15-29 5 Kidney failure <15 (or dialysis) 35 Reference Range and Interpretation: TnI (ng/mL) Interpretation Less Than 0.03 ng/mL Not supportive of diagnosis of [place] 0.03 - 0.50 ng/mL Indeterminate: suggest serial studies if clinically indicated. Greater than 0.5 ng/mL Consistent with diagnosis of [place] 36 Because ethnic data is not always readily available, this report includes an eGFR for both -Americans and non- Americans. The National Kidney Disease Education Program (NKDEP) does not endorse the use of the MDRD equation for patients that are not between the ages of 18 and 70, are , have extremes of body size, muscle mass, or nutritional status, or are non- or non-. According to the National Kidney Foundation, irrespective of diagnosis, the stage of the disease is based on the level of kidney function: Stage Description GFR(mL/min/1.73 m(2)) 1 Kidney damage with normal or decreased GFR 90 2 Kidney damage with mild decrease in GFR 60-89 3 Moderate decrease in GFR 30-59 4 Severe decrease in GFR 15-29 5 Kidney failure <15 (or dialysis) 37 Desirable <150 Borderline high 150-199 High 200-499 Very High >500 38 Desirable <200 Borderline high 200-239 High >239 39 Low <40 Desirable: 40-60 High: >60 40 Desirable <100 Near Optimal 100-129 Borderline high 130-159 High 160-189 Very High >189 41 -- REFERENCE VALUE -- 25-HYDROXY D TOTAL (D2+D3) Optimum levels in the healthy population are 20-50, patients with bone disease may benefit from higher levels within this range. Test Performed by: [place] [address] Fisher Gill Net: Salvador Silva III, M.D. 42 HDL Interpretation: Undesirable: High Risk: Less than 40 mg/dL Desirable: Low Risk: Greater than 60 mg/dL 43 LDL Interpretation: Low Risk Optimal Level: LDL Less than 100 mg/dL Near or Above Optimal: LDL 100-129 mg/dL Borderline High Risk: LDL 130-159 mg/dL High Risk: LDL 160-189 mg/dL Very High Risk: LDL Greater than 189 mg/dL 44 The CA 125 assay is not recommended as a cancer screening test, but rather as an aid in monitoring response to therapy for patients with epithelial ovarian cancer. Serial testing for patients CA 125 assay values should be used in conjunction with other methods used for screening ovarian cancer. Assayed by Chemiluminescence Microparticle Immunoassay on the [email or web address] Access[employer]. The values obtained with different assay methods or kits cannot be used interchangeably. 45 Because ethnic data is not always readily available, this report includes an eGFR for both -Americans and non- Americans. The National Kidney Disease Education Program (NKDEP) does not endorse the use of the MDRD equation for patients that are not between the ages of 18 and 70, are , have extremes of body size, muscle mass, or nutritional status, or are non- or non-. According to the National Kidney Foundation, irrespective of diagnosis, the stage of the disease is based on the level of kidney function: Stage Description GFR(mL/min/1.73 m(2)) 1 Kidney damage with normal or decreased GFR 90 2 Kidney damage with mild decrease in GFR 60-89 3 Moderate decrease in GFR 30-59 4 Severe decrease in GFR 15-29 5 Kidney failure <15 (or dialysis) 46 HDL Interpretation: Undesirable: High Risk: Less than 40 mg/dL Desirable: Low Risk: Greater than 60 mg/dL 47 LDL Interpretation: Low Risk Optimal Level: LDL Less than 100 mg/dL Near or Above Optimal: LDL 100-129 mg/dL Borderline High Risk: LDL 130-159 mg/dL High Risk: LDL 160-189 mg/dL Very High Risk: LDL Greater than 189 mg/dL 48 FASTING 12 HOUR 49 -- REFERENCE VALUE -- 25-HYDROXY D TOTAL (D2+D3) Optimum levels in the normal population are 25-80 Test Performed by: [facility] [place] [address] Fisher [employer] Net: Salvador Silva III, M.D. 50 RUN DATE: 10/21/12 [facility] [place] LAB LIVE PAGE 1 RUN TIME: [address] [place] [id number] Specimen Inquiry Name: ZENA POWER : [address]: Amanda Sutton NP Acct: [id number] Unit: [id number] AGE: 77 Location: [facility] Re10/19/12 SEX: F Status: REG REF SPEC: [id number] ROCCO: 10/19/12-[address]: Amanda Sutton NP REQ: [id number] RECD: 10/19/12160 STATUS: COMP _ SOURCE: URINE SPDESC: ORDERED: Urine Culture QUERIES: Medent Number [id number] Procedure Result Verified Site Urine Culture Final 10/21/12- 36 ML No Growth Day 2 (<1,000 CFU/mL) END OF REPORT * ML=Testing performed at Main Lab DEPARTMENT OF PATHOLOGY, [address] [place] [address] Dilip Graff M.D. Director [facility] Permit #[id number] 51 RUN DATE: 10/14/12 [facility] [place] LAB LIVE PAGE 1 RUN TIME: 924 [facility], [place], [place] [address] Specimen Inquiry Name: JANNETZENA : [address]: Zena Yuen MD Acct: [id number] Unit: [id number] AGE: 77 Location: [facility] Re10/11/12 SEX: F Status: DEP ER SPEC: [id number] ROCCO: 10/11/12-[address] [facility] [address]: Lacy Metcalf MD REQ: [id number] RECD: 10/12/12 STATUS: CHELSIE PALACIOS DR: [facility] _ SOURCE: URINE SPDESC: ORDERED: Urine Culture Procedure Result Verified Site Urine Culture Final 10/14/12- 0925 ML No Growth Day 2 (<1,000 CFU/mL) END OF REPORT * ML=Testing performed at Main Lab DEPARTMENT OF PATHOLOGY, [address] [place] [address] Dilip Graff M.D. Director [facility] Permit #[id number] 52 The INR(International Normalized Ratio) was adopted by the World Health Organization (WHO) in 1982 as a standardized system of reporting PT (Prothrombin Time). The Centers for Disease Control (CDC) states that reporting of PT results in INR only is the preferred method. Recommended INR for Patients on Oral Anticoagulants Prophylaxis 2.0 - 3.0 Treatment of thrombosis 2.0 - 3.0 Prevention of embolism 2.0 - 3.0 Prevention of embolism from prosthetic heart valves 2.5 - 3.[address] FELIX AT FAX NUMBER [phone] 54 Assay by chemiluminescence microparticle immunoassay on the [employer] Access2. The CA 125 assay is not recommended as a cancer screening test, but rather as an aid in monitoring response to therapy for patients with epithelial ovarian cancer. Serial testing for patients CA 125 assay values should be used in conjunction with other methods used for screening ovarian cancer. Values obtained with different methods or kits cannot be used interchangeably for patient monitoring. Results cannot be interpreted as absolute evidence of the presence or absence of malignancy. 55 Because ethnic data is not always readily available, this report includes an eGFR for both -Americans and non- Americans. The National Kidney Disease Education Program (NKDEP) does not endorse the use of the MDRD equation for patients that are not between the ages of 18 and 70, are , have extremes of body size, muscle mass, or nutritional status, or are non- or non-. According to the National Kidney Foundation, irrespective of diagnosis, the stage of the disease is based on the level of kidney function: Stage Description GFR(mL/min/1.73 m(2)) 1 Kidney damage with normal or decreased GFR 90 2 Kidney damage with mild decrease in GFR 60-89 3 Moderate decrease in GFR 30-59 4 Severe decrease in GFR 15-29 5 Kidney failure <15 (or dialysis) 56 -- REFERENCE VALUE -- 25-HYDROXY D TOTAL (D2+D3) Optimum levels in the normal population are 25-80 Test Performed by: [facility] Dpt of Lab Med and Pathology [address] [place] [address] Fisher [employer] Net: Salvador Silva III, M.D. 57 Test Performed by: [facility] Dpt of Lab Med and Pathology [address] [place] [address] [employer] Net: Salvador Silva III, M.D. 58 Less Than 1.0......Low Risk of Cardiovascular Disease 1.0-3.0............Medium Risk (<2 Fold Increase) Greater Than 3.0...High Risk (Approximately 2-Fold Increase) 59 Anion gap measurement may be of limited value in the presence of any alkalosis, especially in a combined acid base disorder. . 60 A metabolite of Naproxen, O-desmethylnaproxen, has been shown to interfere with the Jendrassik-Paul method for measuring total bilirubin. Samples from patients who have taken Naproxen have shown spurious elevation in total bilirubin levels. 61 Because ethnic data is not always readily available, this report includes an eGFR for both -Americans and non- Americans. The National Kidney Disease Education Program (NKDEP) does not endorse the use of the MDRD equation for patients that are not between the ages of 18 and 70, are , have extremes of body size, muscle mass, or nutritional status, or are non- or non-. According to the National Kidney Foundation, irrespective of diagnosis, the stage of the disease is based on the level of kidney function: Stage Description GFR(mL/min/1.73 m(2)) 1 Kidney damage with normal or decreased GFR 90 2 Kidney damage with mild decrease in GFR 60-89 3 Moderate decrease in GFR 30-59 4 Severe decrease in GFR 15-29 5 Kidney failure <15 (or dialysis) 62 CHOLESTEROL INTERPRETATION: Desirable: Less than 200 MG/DL Borderline-High Risk: 200-239 MG/DL High-Risk: 240 MG/DL and over 63 HDL INTERPRETATION: Undesirable: High Risk: Less than 40 MG/DL Desirable: Low Risk: Greater than 60 MG/DL 64 LDL INTERPRETATION: Low Risk Optimal Level: LDL Less than 100 MG/DL Near or Above Optimal: LDL 100-129 MG/DL Borderline High Risk: LDL 130-159 MG/DL High Risk: LDL 160-189 MG/DL Very High Risk: LDL Greater than 189 MG/DL Procedures Date CPT Code Description Status Comment 10/07/2017 36821 ECHO Transthoracic, Real-Time Completed 2D With Doppler And Color Flow 10/07/2017 36635 ECHO Transthoracic, Real-Time Completed 2D With Doppler And Color Flow 10/07/2017 37250 ECHO Transthoracic, Real-Time Completed 2D With Doppler And Color Flow 09/19/2017 96802 Stress Test Completed 09/19/2017 90965 Myocardial Perfusion Imaging Completed Tomographic (Spect) Multiple Studies 09/10/2017 58905 EKG Tracing & Interpretation Completed 05/08/2017 Mammogram Completed 09/13/2016 76869 EKG Tracing & Interpretation Completed 05/03/2016 Mammogram Completed 04/24/2016 Bone Mineral Density Test Completed 09/15/2015 45684 EKG Tracing & Interpretation Completed 03/28/2015 Mammogram Completed 12/05/2014 Colonoscopy Completed 09/09/2014 58989 EKG Tracing & Interpretation Completed 07/14/2014 83449 Stress Test Completed 07/11/2014 16559 ECHO Transthoracic, Real-Time Completed 2D With Doppler And Color Flow 03/14/2014 Bone Mineral Density Test Completed 03/14/2014 Mammogram Completed 03/02/2013 Mammogram Completed 02/02/2013 15611 Remove Impacted Cerumen Completed 02/02/2013 92517 EKG Tracing & Interpretation Completed 02/28/2012 Mammogram Completed 10/21/2011 Bone Mineral Density Test Completed 10/01/2011 01676 EKG Tracing & Interpretation Completed 02/26/2011 Mammogram Completed 04/09/2010 Colonoscopy Completed Attila: repeat in 201302/20/2010 Mammogram Completed 02/13/2010 Colonoscopy Completed 02/13/2010 19856 EKG Tracing & Interpretation Completed 01/17/2009 95058 EKG Tracing & Interpretation Completed 05/02/2008 Diabetic Foot Exam Completed 01/12/2008 70615 EKG Tracing & Interpretation Completed 01/12/2008 19170 EKG Tracing & Interpretation Completed 01/13/2007 Bone Mineral Density Test Completed 01/05/2007 28475 EKG Tracing & Interpretation Completed 01/05/2007 14229 EKG Tracing & Interpretation Completed Encounters Type Date Location Provider CPT E/M Dx Office Visit 03/18/2018 8:[facility]a [facility] [address] [address] [facility] Bam I35.1 Office Visit 11/19/2017 10:20a [facility] Internal Medicine - Amanda Sutton, N.P. [address] I10 [place] Office Visit 10/29/2017 10:00a [facility] Internal Medicine Amanda Sutton, N.P. [address] I10 [place] J18.9 H91.93 Office Visit 10/15/2017 10:30a [facility] Flako Vicente [address] I10 [place] I35.1 Office Visit 09/10/2017 10:30a [facility] Flako Vicente, [address] I35.1 [facility] Bam I10 R55 Office Visit 05/01/2017 10:00a [facility] Internal Medicine Amanda Sutton, N.P. [address] Z00.01 - [place] Z12.31 I10 I35.1 E78.00 M85.9 Z85.43 F32.9 G47.00 M46.1 Office Visit 12/11/2016 11:40a [facility] Uriel Sutton, N.P. 82089 I10 [place] R32 Office Visit 10/15/2016 8:40a [facility] Amanda Sutton, N.P. 68664 I10 - [place] Office Visit 09/13/2016 11:30a [facility] 92416 R94.31 Truong Kuhn I35.1 Office Visit 05/24/2016 9:00a [facility], 45889 M72.2 Joshua Kuhn Office Visit 04/11/2016 11:00a [facility] Amanda Sutton, N.P. 39907 Z00.01 - [place] Z12.31 I10 E04.9 Z85.43 D49.2 M85.89 Office Visit 01/08/2016 1:20p [facility] Amanda Sutton, N.P. 34313 H91.93 - [place] I10 Office Visit 10/19/2015 9:40a [facility] Amanda Sutton, N.P. 01533 I10 - [place] Office Visit 09/18/2015 8:40a [facility] Amanda Sutton, N.P. 36913 I10 - [place] Office Visit 09/15/2015 9:00a [facility] Flako Vicente, 42102 I35.1 Truong Kuhn R94.31 I10 Office Visit 07/24/2015 2:20p [facility] Amanda Sutton, N.P. 01630 M94.0 - [place] R07.89 Office Visit 03/14/2015 9:20a [facility] Amanda Sutton, N.P. 64178 V70.0 - [place] V76.10 401.1 272.4 240.9 733.90 268.9 780.52 v03.82 Office Visit 11/29/2014 10:00a [facility] Amanda Sutton, N.P. 74062 401.1 - [place] 272.4 401.9 Office Visit 11/14/2014 9:00a [facility] Amanda Sutton, N.P. 37989 272.4 - [place] 729.5 401.1 V76.51 Office Visit 09/09/2014 1:00p [facility] Flako Vicente, 16731 424.1 Truong Kuhn 401.1 Office Visit 09/09/2014 8:40a [facility] Amanda Sutton, N.P. 09392 401.1 - [place] Office Visit 08/19/2014 8:40a [facility] Lisa Beltran M.D. 32696 401.1 - [place] 466.0 Office Visit 08/12/2014 3:00p [facility] Lisa Beltran M.D. 75478 401.1 - [place] 429.3 Office Visit 07/28/2014 10:40a [facility] Amanda Sutton, N.P. 34800 530.81 - [place] 401.1 Office Visit 06/30/2014 9:20a [facility] Amanda Sutton, N.P. 27895 786.50 - [place] 530.81 Office Visit 01/05/2014 2:00p [facility] - Lacy Metcalf M.D., 37758 401.1 [place] FACP 780.52 268.9 183.0 V62.82 Office Visit 05/24/2013 10:40a [facility] - Lacy Metcalf M.D., 52413 272.0 [place] FACP V04.81 Office Visit 10/19/2012 10:40a [facility] Amanda Sutton, N.P. 90504 599.0 - [place] Office Visit 08/12/2012 4:00p [facility] Lacy Metcalf M.D., 63439 784.7 - [place] FACP Office Visit 10/01/2011 10:40a [facility] Lacy Metcalf M.D., 13443 V70.0 - [place] FACP 272.0 V76.10 733.90 300.00 564.00 Office Visit 01/29/2011 3:20p DO Not Use [employer] [facility] Lacy Metcalf 02286 486 M.D., FACP Office Visit 11/14/2010 3:45p DO Not Use [employer] [facility] Lacy Metcalf 52694 112.0 M.D., FACP Office Visit 06/12/2010 9:30a DO Not Use [employer] [facility] Lacy Metcalf 80070 466.0 M.D., FACP V04.81 Office Visit 02/13/2010 10:45a DO Not Use [employer] [facility] Lacy Metcalf 10572 V70.0 M.D., FACP 183.0 300.00 401.1 Office Visit 09/26/2009 9:30a DO Not Use [employer] [facility] Lacy Tea, 81554 733.00 M.D., FACP Office Visit 01/17/2009 9:15a DO Not Use [employer] [facility] Lacy Tea, 57605 V70.0 M.D., FACP 272.0 401.1 Office Visit 11/07/2008 9:00a DO Not Use [employer] [facility] Lacy Tea, 69011 272.4 M.D., FACP Office Visit 08/09/2008 9:00a DO Not Use [employer] [facility] Lacy Tea, 94360 272.0 M.D., FACP Office Visit 03/24/2008 12:15p DO Not Use [employer] [facility] Lacy Tea, 11538 706.2 M.D., FACP Office Visit 02/09/2008 1:45p DO Not Use [employer] [facility] Lacy Tea, 17339 272.0 M.D., FACP 401.1 719.47 Office Visit 01/12/2008 9:15a DO Not Use [employer] [facility] Lacy Tea, 42243 V70.0 M.D., FACP 183.0 241.1 272.0 796.2 V05.8 Office Visit 03/03/2007 10:30a DO Not Use [employer] [facility] Lacy Tea, 08695 183.0 M.D., FACP 241.1 Office Visit 01/05/2007 10:15a DO Not Use [employer] [facility] Lacy Tea, 78436 401.1 M.D., FACP 183.0 733.90 241.1 V70.0 Plan of Care Future Appointment(s):11/02/2018 10:00 am - Amanda Sutton N.Travis at [facility] - Qehtudiwz87/11/2018 - Amanda Sutton N.P.Z00.00 Encntr for general adult medical exam w/o abnormal findingsComments:For your routine health maintenance: I encourage you to continue with regular exercise and healthy nutrition. Your colonoscopy is up to date. You had this in 2014. You will not need this repeated, barring anything unforeseen. Your pneumonia immunizations are up to date. You had these in 2000 and 2014.You will not need these again. There is a new shingles vaccine available, Shingrix. This is a seriesof 2 injections given 2 - 6 months apart. This is available at the pharmacy and I urge you to get this.Please be sure to get a flu shot also!yZ12.31 Encntr screen mammogram for malignant neoplasm of breastNew Xrays:MG Screening MammogramComments:I have ordered your routine screening mammogram. The imaging department will give you your results at the time of your visit. I encourage you to do self exams. If you should notice any masses or thickening, please give the office a call.I10 Essential (primary) hypertensionComments:Your high blood pressure is in excellent control on your current management. I would like you to monitor your blood pressure at home. If your readings at home are consistently higher than 140/90, please call the office.E78.00 Pure hypercholesterolemia, unspecifiedComments:For your high cholesterol: I advise you to follow a low cholesterol diet.F32.9 Major depressive disorder, single episode, unspecifiedComments:For your depression: Continue with your current management. If you should feel your depression is not well managed at any point , please give the office a call.I35.1 Nonrheumatic aortic (valve) insufficiencyComments:You are due for an echocardiogram soon with Dr Vicente. Please continue your management with him.
--- NOTE | 2018-05-30 09:55 | UC ---
Complaint Female HPI - HPI Summary HPI Summary: 83 y/o female presents to the urgent care c/o frequency of urination, burning with urination that started last Friday05/27/2018. Pt states she was taking Pyridium PO from previous doctor visit, felt better after taking it, but now pain is back. Pain w/ urination is 3/10. Pt denies fever. lower back pain, flank pain, vaginal discharge, abdominal pain, N/V/D. - History Of Current Complaint Stated Complaint: URINARY COMPLAINT Time Seen by Provider: 05/30/18 09:54 Hx Obtained From: Patient Hx Last Menstrual Period: post menopausal ?: No Onset/Duration: Gradual Onset, Lasting Days - 4 days, Still Present, Worse Since - today Timing: Intermittent, Lasting Seconds Severity Initially: Mild Severity Currently: Mild Pain Intensity: 3 Pain Scale Used: 0-10 Numeric Character: Burning Aggravating Factor(s): Urination Alleviating Factor(s): Meds - Pyridium Associated Signs And Symptoms: Negative: Fever, Back Pain, Vaginal Discharge - Risk Factors Ectopic Risk Factor: Negative Ovarian Torsion Risk Factor: Negative - Allergies/Home Medications Allergies/Adverse Reactions: Allergies Allergy/AdvReac Type Severity Reaction Status Date / Time No Known Allergies Allergy Verified 05/30/18 09:50 PMH/Surg Hx/FS Hx/Imm Hx Previously Healthy: Yes Endocrine History: Dyslipidemia Cardiovascular History: Hypertension Other Cardiovascular History: Aortic stenosis - Surgical History Surgical History: Yes Surgery Procedure, Year, and Place: total hysterectomy,[facility]. D&C - Family History Known Family History: Positive: Cardiac Disease, Other - breast and lung CA - Social History Occupation: Retired Lives: With Family Alcohol Use: Occasionally Substance Use Type: None Smoking Status (MU): Former Smoker When Did the Patient Quit Smoking/Using Tobacco: when she was 21 yrs old - Immunization History Most Recent Influenza Vaccination: 2017 Review of Systems Constitutional: Negative Skin: Negative Eyes: Negative ENT: Negative Respiratory: Negative Cardiovascular: Negative Gastrointestinal: Negative Genitourinary: Dysuria, Frequency, Urgency Motor: Negative Neurovascular: Negative Musculoskeletal: Negative Neurological: Negative Psychological: Negative Is Patient Immunocompromised?: No All Other Systems Reviewed And Are Negative: Yes Physical Exam - Summary Physical Exam Summary: VITAL SIGNS: Reviewed. GENERAL: Patient is a well developed and nourished female who is sitting comfortable in the examining table. Patient is not in any acute respiratory distress. HEAD AND FACE: No signs of trauma. No ecchymosis, hematomas or skull depressions. No sinus tenderness. EYES: PERRLA, EOMI x 2, No injected conjunctiva, clear watery eyes, no nystagmus. No photophobia. EARS: Hearing grossly intact. Ear canals and tympanic membranes are within normal limits. MOUTH: pharynx with no erythema, no exudates,no palatal petechiae. no B/L tonsillar enlargement Uvula in midline. NECK: Supple, trachea is midline, no lymphadenopathy, no JVD, no carotid bruit, no c-spine tenderness, neck with full ROM. CHEST: Symmetric, no tenderness at palpation LUNGS: Clear to auscultation bilaterally. No wheezing or crackles. CVS: Regular rate and rhythm, S1 and S2 present, no murmurs or gallops appreciated. ABDOMEN: Soft, non-tender. No signs of distention. No rebound no guarding, and no masses palpated. Bowel sounds are normal. BACK:no scoliosis or lesions, non tender to palpation, No B/L CVA tenderness EXTREMITIES: FROM in all major joints, no edema, no cyanosis or clubbing. NEURO: Alert and oriented x 3. No acute neurological deficits. Speech is normal and follows commands. SKIN: Dry and warm Triage Information Reviewed: Yes Complaint Female Dx - Course Course Of Treatment: 83 y/o female presents to the urgent care c/o frequency of urination, burning with urination that started last Friday05/27/2018. Pt states she was taking Pyridium PO from previous doctor visit, felt better after taking it, but now pain is back. Pain w/ urination is 3/10. Pt denies fever. lower back pain, flank pain, vaginal discharge, abdominal pain, N/V/D. Hx obtained. PE: WNL. UA ordered. UA results: Blood trce, Leukoesterase 3+. Pt Rx Macrobid 100mg PO x 7 days. Pyridium 100mg PO TID x 2 days. Advised to increase fluid intake. Urine sent for culture if any abnormality Pt will be notified for further treatment. Pt advised If symptoms do not improve to return to the urgent care or f/u with PCP. Pt's BP is elevated today advised to decrease salt in diet, monitor BP and f/u with PCP for further management. Pt understood and agreed. Left the clinic ambulating and hemodynamically stable. - Differential Dx/Diagnosis Differential Diagnosis/HQI/PQRI: Cervicitis, Renal Colic, Ureteral Stone, Urinary Tract Infection Provider Diagnoses: 1- UTI. 2- Dysuria. 3- Uncontrolled HTN Discharge - Sign-Out/Discharge Documenting (check all that apply): Patient Departure - D/C home All imaging exams completed and their final reports reviewed: No Studies - Discharge Plan Condition: Stable Disposition: HOME Prescriptions: Nitrofurantoin Macrocrystals* [Macrodantin 100 mg*] 100 mg PO DAILY #14 cap Phenazopyridine TAB* [Pyridium 100 mg TAB*] 100 mg PO TID #6 tab Patient Education Materials: Urinary Tract Infection in Women (ED), Low-Sodium Diet (ED) Referrals: Christi Richmond MD [Primary Care Provider] - 3 Days Additional Instructions: 1- Please take Macrobid 100mg PO x 7 days. Pyridium 100 mg PO TID x 2 days to alleviate urinary symptoms. Increase increase fluid intake. drink cranberry juice. 2-Urine sent for culture if any abnormality, you will be notified for further treatment. 3-If symptoms do not improve please return to the urgent care or f/u with your PCP for further management. 4-Pt's BP is elevated today advised to decrease salt in diet, monitor BP and f/ u with PCP for further management. - Billing Disposition and Condition Condition: STABLE Disposition: Home - Attestation Statements Provider Attestation: Per institutional requirements, I have reviewed the chart, however, I was not consulted specifically or made aware of this patient by the midlevel provider. I did not personally evaluate, interact with , or disposition this patient.
[2018-05-30 10:00] VITALS: BP 144/65
== END 2018-05-30 10:25 | disposition home or self-care (01) ==
LOC: UCEAST 09:37
DX: N39.0 Urinary tract infection, site not specified (principal); I10 Essential (primary) hypertension; E78.5 Hyperlipidemia, unspecified; F17.210 Nicotine dependence, cigarettes, uncomplicated
CPT/HCPCS: 81003; 87077; 87086; 87186; 99212; G0463

== ENCOUNTER 2018-09-22 07:15 | Day surgery (SDC) | payer MEDICARE, OTHER ==
[~2018-09-22 07:15] MED LIST: Acetaminophen TAB* 325 MG PO PRN; Buffered Lidocaine 1% SYRIN* 1 ML/SYRINGE INTRADERM ONE
[2018-09-22] MEDS ORDERED: Ketorolac 0.5% OPHTH (NF) 0.5 % 5 ML BTL ONE (07:36)
[2018-09-22] MEDS ORDERED: Tetracaine 0.5% OPTH.SOL 4 ML* 1 DROP BTL ONE (07:36)
[2018-09-22] MEDS ORDERED: Phenylephrine 2.5% OPTH.SOL* 2 ML BTL ONE (07:36)
[2018-09-22] MEDS ORDERED: Cyclopentolate 1% OPTH.SOL* 2 ML BTL ONE (07:36)
[2018-09-22] MEDS ORDERED: Lidocaine 1%* 5 ML VIAL ONE (07:36)
[2018-09-22] MEDS ORDERED: Tropicamide 1% OPTH.SOL* BTL ONE (07:36)
[2018-09-22] MEDS ORDERED: Neomycin/Polymy/Dex OPHTH.OIN* 3.5 GM ONE (07:36)
[2018-09-22] MEDS ORDERED: fentaNYL* 50 MCG/ML 2 ML VIAL (100 MCG VIAL) ONE (08:42)
[2018-09-22] MEDS ORDERED: Midazolam* 1 MG/ML 2 ML VIAL (2 MG) ONE (08:42)
[2018-09-22 09:16] VITALS: BP 143/50
--- NOTE | 2018-09-22 12:31 | OP ---
DATE OF OPERATION/DATE OF DICTATION: 09/22/2018 - [facility] DATE OF : 1935. SURGEON: Dr. Porfirio Boss. SPORTS BROADCASTER: None. ANESTHESIA: Topical with intravenous sedation. PRE-OP DIAGNOSIS: Cataract, left eye. POST-OP DIAGNOSIS: Cataract, left eye. OPERATIVE PROCEDURE: Phacoemulsification and cataract extraction with posterior chamber intraocular lens implant, left eye. COMPLICATIONS: None. BLOOD LOSS: None. DESCRIPTION OF PROCEDURE: The patient was brought to the operating room and received a small amount of intravenous sedation. A drop of Tetracaine was placed in her left eye. She was prepped and draped in the usual sterile fashion for ophthalmic surgery and attention was directed to the left eye where a speculum was placed. A paracentesis was created at the 5 o'clock position and 0.1 cc of 1 percent preservative-free Lidocaine was injected into the anterior chamber followed by DisCoVisc. The eye was digitally stabilized while a 2.75 mm keratome was used to create a triplanar clear corneal incision at the 3 o'clock position. A continuous curvilinear capsulorrhexis was created with a cystotome and Utrata forceps. BSS on a cannula was used to hydrodissect the lens from the capsule. Phacoemulsification was performed in a divide-and- conquer technique to create four fragments which were removed. Residual cortical material was removed with irrigation and aspiration. DisCoVisc was used to inflate the capsular bag and an AUOOTO 23.0 diopter lens was folded and inserted into the capsular bag. DisCoVisc was removed using irrigation and aspiration. BSS on a cannula was used to hydrate the corneal stroma and seal the wound. At the end of the case the pupil was round and the lens was centered. The eye was of normal pressure and the wound was water tight. The speculum was removed and topical Maxitrol ointment was placed on the surface of the eye. The eye was closed, patched and shielded and the patient was sent to the recovery room in stable condition with post operative instructions and follow-up appointment given. [id number]/CPS #: [id number] MTDD
== END 2018-09-22 09:20 | disposition home or self-care (01) ==
LOC: OREAST 07:15
PROVIDERS: ATTEND Ophthalmology
DX: H25.12 Age-related nuclear cataract, left eye (principal); E78.00 Pure hypercholesterolemia, unspecified; I10 Essential (primary) hypertension; F41.9 Anxiety disorder, unspecified; Z87.891 Personal history of nicotine dependence
CPT/HCPCS: A9270-GY; J2250; J3010; V2632

== ENCOUNTER 2018-09-29 08:53 | Day surgery (SDC) | payer MEDICARE, OTHER ==
[2018-09-29 09:29] VITALS: BP 148/45
[2018-09-29] MEDS ORDERED: Midazolam* 1 MG/ML 2 ML VIAL (2 MG) ONE (10:21)
[2018-09-29] MEDS ORDERED: fentaNYL* 50 MCG/ML 2 ML VIAL (100 MCG VIAL) ONE (10:21)
--- NOTE | 2018-09-29 11:33 | OP ---
DATE OF OPERATION: 09/29/18 [facility] DATE OF : 37 SURGEON: Dr. Porfirio Boss. TRADE FACILITATOR: None. ANESTHESIA: Topical with intravenous sedation. PRE-OP DIAGNOSIS: Cataract, right eye. POST-OP DIAGNOSIS: Cataract, right eye. OPERATIVE PROCEDURE: Phacoemulsification and cataract extraction with posterior chamber intraocular lens implant, right eye. COMPLICATIONS: None. BLOOD LOSS: None. DESCRIPTION OF PROCEDURE: The patient was brought to the operating room and received a small amount of intravenous sedation. A drop of tetracaine was placed in her right eye. She was prepped and draped in the usual sterile fashion for ophthalmic surgery and attention was directed to the right eye where a speculum was placed. A paracentesis was created at the 11 o'clock position and 0.1 cc of 1% preservative- free lidocaine was injected into the anterior chamber followed by DisCoVisc. The eye was digitally stabilized while a 2.75 mm keratome was used to create a triplanar clear corneal incision at the 9 o'clock position. A continuous curvilinear capsulorrhexis was created with a cystotome and Utrata forceps. BSS on a cannula was used to hydrodissect the lens from the capsule. Phacoemulsification was performed in a divide-and- conquer technique to create 4 fragments, which were removed. Residual cortical material was removed with irrigation and aspiration. DisCoVisc was used to inflate the capsular bag and an AU00T0 23.0 diopter lens was folded and inserted into the capsular bag. DisCoVisc was removed using irrigation and aspiration. BSS on a cannula was used to hydrate the corneal stroma and seal the wound. At the end of the case, the pupil was round and the lens was centered. The eye was of normal pressure and the wound was water tight. The speculum was removed and topical Maxitrol ointment was placed on the surface of the eye. The eye was closed, patched, and shielded and the patient was sent to the recovery room in stable condition with postoperative instructions and follow -up appointment given. [id number]/CPS #: [id number] CADY
[2018-09-29] MEDS ORDERED: Lidocaine 1%* 5 ML VIAL ONE (15:26)
[2018-09-29] MEDS ORDERED: Tropicamide 1% OPTH.SOL* BTL ONE (15:26)
[2018-09-29] MEDS ORDERED: Ketorolac 0.5% OPHTH (NF) 0.5 % 5 ML BTL ONE (15:26)
[2018-09-29] MEDS ORDERED: Tetracaine 0.5% OPTH.SOL 4 ML* 1 DROP BTL ONE (15:26)
[2018-09-29] MEDS ORDERED: Neomycin/Polymy/Dex OPHTH.OIN* 3.5 GM ONE (15:26)
[2018-09-29] MEDS ORDERED: Cyclopentolate 1% OPTH.SOL* 2 ML BTL ONE (15:26)
[2018-09-29] MEDS ORDERED: Phenylephrine 2.5% OPTH.SOL* 2 ML BTL ONE (15:26)
== END 2018-09-29 11:21 | disposition home or self-care (01) ==
LOC: OREAST 08:53
PROVIDERS: ATTEND Ophthalmology
DX: H25.11 Age-related nuclear cataract, right eye (principal); I10 Essential (primary) hypertension; Z87.891 Personal history of nicotine dependence; Z85.43 Personal history of malignant neoplasm of ovary; E78.00 Pure hypercholesterolemia, unspecified
CPT/HCPCS: A9270-GY; J2250; J3010; V2632

== ENCOUNTER 2019-02-21 19:14 | Emergency (ER) | payer MEDICARE, OTHER ==
--- OUTSIDE RECORDS SUMMARY | 2019-02-21 19:22 | XMS REPORT | Continuity of Care Document ---
:1935 External Reference #:[id number] Author Name Damian Cotter, OD Address [address] [place] [address] Care Team Providers Name Role Phone Aamnda Sutton NP Care Team Information Outside Machinist Unavailable Amanda Sutton NP Primary Care Physician Unavailable Payers Date Identification Numbers Payment Provider Subscriber Policy Number: [id number] [facility] Jazlyn Hoover PayID: [id number] Attn: Claims [address] [address] [place] [address] Policy Number: [id number] [employer] Jazlyn Hoover Group Number: [id number] [address] PayID: [id number] [place] [address] Problems Active Problems Provider Date Nuclear senile cataract Porfirio Boss M.D. 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 Onset: 03/22/2016 Thyroid nodule Onset: Hypertensive disorder Onset: Hypercholesterolemia Onset: Family History Date Family Member(s) Observation Comments General Cancer General Heart Disease General Sister, Brother Father Noncontributory Mother Cataract Social History Type Date Description Comments Sex Unknown ETOH Use Rarely consumes alcohol Tobacco Use Start: Unknown Patient has never smoked Smoking Status Reviewed: 01/29/19 Patient has never smoked Allergies, Adverse Reactions, Alerts Description No Known Drug Allergies Medications Active Medications SIG Qnty Indications Ordering Provider Date Co Q-10 Every Day Unknown 05/11/2015 200mg Capsules Amlodipine Besylate Unknown 10mg Tablets Losartan Potassium Unknown 100mg Tablets Sertraline HCL Unknown 50mg Tablets Aspir-81 once per day by Unknown 81mg Tablets DR mouth [place] 3 Unknown 1000mg Capsules Glucosamine Chondroitin 1 a day Unknown 1500 Complex Maximum Strength 1500Com Capsules Multivitamin Adult Unknown Tablets Calcium Unknown 500mg Chewtabs Cranberry Unknown 125mg Tablets Tylenol PM Extra Unknown Strength Tablets Vitamin D-1000 Maximum Unknown Strength 1000Unit Tablets Vitamin B-2 Unknown 100mg Tablets Biotin Unknown 5000mcg Capsules History Medications Xiidra 1gtt both eyes 60units Damian Cotter, 12/29/2018 - 5% Solution twice a day OD 01/29/2019 Fluorometholone 1gtt three 10ml Damian Cotter, 11/26/2018 - 0.1% times a day OD 12/29/2018 Suspension both eyes x 1 week Trimethoprim 1 drop right 10ml H10.011 Porfirio 11/19/2018 - Sulfate/Polymyxin B eye 3 times a Bam Boss 11/26/2018 Sulfate day x 5 days 83706-2.1Unit/ML-% Solution Vigamox 1 drop right 3ml Porfirio 09/15/2018 - 0.5% Solution eye four times Bam Boss 10/06/2018 a day, start drops the morning of surgery Vigamox 1 drop left eye 3ml [place] 09/15/2018 - 0.5% Solution four times a Bam Boss 10/06/2018 day, start drops morning of surgery Ketorolac Tromethamine 1 drops right 5ml Porfirio 09/15/2018 - 0.5% eye twice a day Bam Boss 10/06/2018 Solution Ketorolac Tromethamine 1 drops left 5ml Porfirio 09/15/2018 - 0.5% eye twice a day Bam Boss 11/03/2018 Solution Pred Forte 1 drops left 10ml Porfirio 09/15/2018 - 1% Suspension eye four times Bam Boss 10/06/2018 a day Pred Forte 1 drops left 10ml Porfirio 09/15/2018 - 1% Suspension eye four times Bam Boss 11/03/2018 a day Erythromycin Three Times 1units Unknown 02/16/2018 - 5mg/GM Daily 09/02/2018 Ointment Tylenol PM Extra Every Day Unknown 08/29/2017 - Strength 09/02/2018 500-25mg Tablets Vicks Nyquil Severe Every Evening Unknown 08/29/2017 - Cold & Flu 09/02/2018 Liquid Levaquin Every Day 7tabs Unknown 08/29/2017 - 500mg Tablets 09/02/2018 Cozaar Every Day Unknown 05/11/2015 - 25mg Tablets 03/26/2018 Vital Signs Date Vital Result Comment 12/29/2018 11:25am Intraocular Pressure Right Eye 12 mmHg Intraocular Pressure Left Eye 12 mmHg 12/03/2018 11:16am Intraocular Pressure Right Eye 12 mmHg Intraocular Pressure Left Eye 12 mmHg 10/06/2018 8:44am Intraocular Pressure Right Eye 13 mmHg Intraocular Pressure Left Eye 13 mmHg 09/30/2018 8:43am Intraocular Pressure Right Eye 15 mmHg Intraocular Pressure Left Eye 13 mmHg 09/23/2018 8:18am Intraocular Pressure Left Eye 15 mmHg 09/02/2018 2:22pm Intraocular Pressure Right Eye 13 mmHg Intraocular Pressure Left Eye 13 mmHg 03/26/2018 9:27am Intraocular Pressure Right Eye 12 mmHg Intraocular Pressure Left Eye 12 mmHg 03/24/2017 1:12pm Intraocular Pressure Right Eye 14 mmHg Intraocular Pressure Left Eye 14 mmHg 03/22/2016 1:17pm Intraocular Pressure Right Eye 14 mmHg Intraocular Pressure Left Eye 14 mmHg Procedures Date Code Description Status 09/29/2018 14541 Extracapsular Cataract Extraction W/Intraocular Lens Completed 09/22/2018 12808 Extracapsular Cataract Extraction W/Intraocular Lens Completed 09/02/2018 64594 Eye Exam Est Intermediate Completed 09/02/2018 82571 B-Scan Contact, Ophthalmic Ultrasound Echography Completed 03/26/2018 06423 Eye Exam Est Intermediate Completed 03/24/2017 90403 Eye Exam Est Intermediate Completed 03/22/2016 89710 Fundus Photography W/Interpretation & Report Completed 03/22/2016 66516 Eye Exam Est Comprehensive Completed 10/31/2009 55275 Fundus Photography W/Interpretation & Report Completed 10/31/2009 14764 Ophthalmoscopy Initial Completed 10/31/2009 37375 Eye Exam Est Comprehensive Completed 03/03/2008 49412 Refraction Completed 03/03/2008 77266 Eye Exam New Comprehensive Completed Encounters Type Date Location Provider Dx Diagnosis Office Visit 01/29/2019 Main Office Damian Cotter, OD H04.123 Dry eye syndrome of 8:30a bilateral lacrimal glands Office Visit 12/29/2018 Main Office Damian Cotter, OD H04.123 Dry eye syndrome of 8:45a bilateral lacrimal glands Office Visit 12/03/2018 Main Office Damian Cotter, OD H10.013 Acute follicular 11:00a conjunctivitis, bilateral Office Visit 11/26/2018 Main Office Damian Cotter, OD H10.013 Acute follicular 10:15a conjunctivitis, bilateral Office Visit 11/19/2018 Main Office Porfirio Boss, H10.011 Acute follicular 10:30a M.D. conjunctivitis, right eye Plan of Treatment Future Appointment(s):04/19/2019 9:30 am - Damian Cotter, OD at [facility]/2019 - Damian Cotter, ODH04.123 Dry eye syndrome of bilateral lacrimal glandsFollow up:2 mos full, sooner PRN
--- OUTSIDE RECORDS SUMMARY | 2019-02-21 19:22 | XMS REPORT | Continuity of Care Document ---
:1935 External Reference #:[id number] Author Name Malina Barboza Care Team Providers Name Role Phone Christi Richmond MD Care Team Information Computer Specialist Unavailable Christi Richmond MD Primary Care Physician Unavailable Payers Date Identification Numbers Payment Provider Subscriber Policy Number: [id number] [employer] PayID: [id number] [address] [address] Attn: [place] [address] Effective: 2014 Policy Number: [id number] [employer] Number: [id number] [address] PayID: [id number] GEOR[place] Ulloa [id number] Effective: 2010 Policy Number: [id number] [employer] Expires: 2015 Group Number: [id number] [address] [address] PayID: [id number] Attn: [place] [address] Expires: 2014 Policy Number: [id number] [employer] Number: [id number] [address] PayID: [id number] [place] [address] Advance Directives Type Date Description Status Comment Other Directive 10/23/2014 Health Care Proxy Current and Verified Problems Active Problems Provider Date Essential hypertension Flako Vicente M.D. Onset: 09/15/2015 Pure hypercholesterolemia Lacy Metcalf M.D., FACP Onset: 02/13/2010 Malignant tumor of ovary Lacy Metcalf M.D., FACP Onset: 02/13/2010 Family History Date Family Member(s) Observation Comments General Heart Disease General Cancer : (age 92 Father due to Natural Years) Causes Father Depression Age 92 Mother Age 102 Mother 99 First Daughter 57 Second Daughter 55 Siblings 8 Siblings Brother Heart disease, due to HI Brother - Lung Cancer Sister - Breast Cancer : (age 77 First Brother due to Cancer, 1 Brother - Years) Lung HI (Age 75) First Sister Cancer, Breast : (age 70 First Sister due to Cancer, Years) Breast Second Sister Cancer, Breast Second Sister 69 Social History Type Date Description Comments Sex Unknown Marital Status Lives With Alone 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 Cigarette Use Quit at age 21 ETOH Use Occasionally consumes wine Tobacco Use Start: Unknown End: Patient is a former smoker smoked 5 yrs Unknown Recreational Drug Use Denies Drug Use Smoking Status Reviewed: 02/12/19 Patient is a former smoker smoked 5 yrs Exercise Type/Frequency Exercises regularly walking Allergies, Adverse Reactions, Alerts Active Allergies Reaction Severity Comments Date Penicillin pt unsure has used since without 02/09/2010 problems Tylenol W/Codeine pt unsure, itching hands has used since without 2009 problems Medications Active Medications SIG Qnty Indications Ordering Provider Date Losartan 1 by mouth every 30tabs I10 Amanda Sutton, 11/19/2017 Potassium/Hydrochloro day N.P. thiazide 100-25mg Tablets Amlodipine Besylate Take 1 Tablet By 90tabs I10 Amanda Sutton, 09/18/2015 Mouth Every Day N.P. 10mg Tablets Sertraline HCL Take 1 Tablet By 90tabs Amanda Sutton, 02/09/2010 50mg Mouth Daily N.P. Tablets Biotin 1 tab daily otc Unknown 5000mcg Capsules Vitamin B-2 qd Unknown 100mg Tablets Coq-10 1 by mouth every Unknown 100mg Capsules day Vitamin D-1000 1 po qd Unknown 1000Unit Tablets [place] 3 po qd Unknown 1200mg Capsules Tylenol PM 2 tablets at Unknown Tablets bedtime Aspirin Adult Low 1 po qd 90units Unknown Strength 81mg Chewtabs Cranberry Extract once daily Unknown 100mg Capsules Glucosamine po qd Unknown Chondroitin Complex 1500mg Capsules Calcium bid Unknown 500mg Tablets Vitamin B Complex 1 po qd Unknown Capsules Multi-Vitamin 1 po qd Unknown Tablets History Medications Macrodantin Every Day 14caps Unknown 05/30/2018 - 100mg Capsules 07/30/2018 Pyridium Three Times 6tabs Unknown 05/30/2018 - 100mg Tablets Daily 07/30/2018 Erythromycin Three Times 1units Unknown 02/16/2018 - 5mg/GM Ointment Daily 03/17/2018 Belsomra one by mouth 30tabs G47.00 Amanda Sutton, 05/01/2017 - 10mg Tablets at bedtime as N.P. 10/29/2017 needed sleep Vicodin take 1 by 30tabs Amanda Sutton, 07/24/2015 - 5-300mg Tablets mouth every 6 N.P. 08/07/2015 hours as needed Rozerem one by mouth 15tabs Amanda Sutton, 03/20/2015 - 8mg Tablets at bedtime as N.P. 09/13/2015 needed sleep Vistaril One po hs 30caps 780.52 Amanda Sutton, 03/14/2015 - 25mg Capsules N.P. 03/20/2015 Amlodipine Besylate 1 by mouth 90tabs I10 Amanda Sutton, 11/29/2014 - 5mg Tablets every day N.P. 09/18/2015 Losartan Potassium Take 1 Tablet 90tabs I10 Amanda Sutton, 11/14/2014 - 100mg Tablets By Mouth N.P. 03/17/2018 Every Day Azithromycin 2 tab by mouth 6tabs 466.0 Lisa Beltran, 08/19/2014 - 250mg Tablets day 1 then 1 M.D. 09/08/2014 tab by mouth day 2-5 Altace take 1 capsule 30caps 401.1 Lisa Beltran, 08/12/2014 - 2.5mg Capsules by mouth one M.D. 09/08/2014 time daily Lisinopril 1 by mouth 30tabs 401.1 Amanda Sutton, 08/12/2014 - 2.5mg Tablets every day N.P. 09/06/2014 Hydrochlorothiazide 1 by mouth 135tabs 401.1 Lacy Metcalf, 01/05/2014 - 25mg Tablets every day M.D., FACP 09/06/2014 Atorvastatin Calcium 1/2 by mouth 45tabs 272.0 Lacy Metcalf, 05/24/2013 - 10mg Tablets every night at M.D., FACP 11/14/2014 bedtime Ergocalciferol 1 cap by mouth 8caps 268.9 Lacy Metcalf, 02/02/2013 - 89770Movy Capsules every week M.D., FACP 01/05/2014 Simvastatin Take 1 Tablet 90tabs 272.0 Lacy Metcalf, 10/30/2012 - 10mg Tablets AT Bedtime M.D., FACP 05/24/2013 Sulfamethoxazole/Trimethop one po bid for 20tabs 599.0 Amanda Herman, - rim DS 10 days N.P. 10/29/2012 800-160mg Tablets Mycelex Troches Use as 20units 112.0 Lacy Metcalf, 11/14/2010 - directed. [facility] 01/29/2011 Azithromycin two tabs day 1ZPack Lacy Metcalf, 06/12/2010 - 250mg Tablets one, one daily M.D., FACP 06/17/2010 till gone Flovent HFA 2 puffs twice 10.600gm Lacy Metcalf, 06/12/2010 - 44mcg/Act Aerosol daily M.D., FACP 11/14/2010 Zocor 1 tablet at 90tabs Lacy Metcalf, 02/09/2010 - 10mg Tablets bedtime M.D., [facility] 10/30/2012 Fosamax D one tablet 12tabs Lacy Metcalf, 02/09/2010 - 70mg Tablets weekly M.D., FACP 02/13/2010 Levofloxacin take 1 tablet Unknown - 500mg Tablets by mouth once 09/04/2017 daily for 7 days Medications Administered in Office Medication SIG Qnty Indications Ordering Provider Date Technetium TC 99M Flako Lux M.D. 09/19/2017 Per Unit Dose Up To 40 Millicuries Injection Immunizations CPT Code Status Date Vaccine Lot # [id number] Given 11/07/2018 Zoster (Shingles) Vaccine (HZV), Recombinant, Subunit, Adjuvanted 96287 Given 05/09/2018 Influenza Virus Vaccine, Quadrivalent, Split, Preservative Free [id number] Given 04/30/2017 Flu Vaccine NOS Q2039 Given 05/29/2016 Flu Vaccine NOS 09906 Given 03/14/2015 Pneumococcal Conjugate Vaccine 13 Valent For [id number] Intramuscular Use 43326 Given 06/24/2014 Fluzone High Dose 46546 Given 05/24/2013 Flu Vaccine Split Virus Preservative Free For [id number] Indiv 3Yr Older 39496 Given 02/02/2013 Tdap - Tetanus/Diptheria/Acellular Pertussis [id number] Q2038 Given 05/20/2012 Fluzone Vaccine [id number] Q2038 Given 06/03/2011 Fluzone Vaccine [id number] 46450 Given 06/12/2010 Influenza Virus 3Yrs & Over 08784 Given 09/04/2009 Influenza Virus Vaccine, Pandemic Formulation 58359 Given 05/29/2009 Influenza Virus 3Yrs & Over 27549 Given 06/13/2008 Influenza Virus 3Yrs & Over 54379 Given 06/13/2008 Influenza Virus 3Yrs & Over 63322 Given 01/12/2008 Zoster (Zostavax) 92368 Given 06/08/2007 Influenza Virus 3Yrs & Over 57883 Given 06/08/2007 Influenza Virus 3Yrs & Over 17230 Given 06/23/2006 Influenza Virus 3Yrs & Over 86329 Given 06/23/2006 Influenza Virus 3Yrs & Over Vital Signs Date Vital Result Comment 02/12/2019 8:08am Height 59.75 inches 4'11.75" Weight 149.00 lb w/shoes Heart Rate 66 /min BP Systolic Sitting 148 mmHg Rue reg cuff BP Diastolic Sitting 60 mmHg Rue reg cuff BP Systolic Standing 136 mmHg Rue reg cuff BP Diastolic Standing 60 mmHg Rue reg cuff BMI (Body Mass Index) 29.3 kg/m2 Ejection Fraction 55-60% 01/28/19 echo 11/02/2018 10:14am Height 59.75 inches 4'11.75" Weight 149.00 lb Heart Rate 84 /min BP Systolic 142 mmHg BP Diastolic 58 mmHg Body Temperature 97.3 F O2 % BldC Oximetry 97 % BMI (Body Mass Index) 29.3 kg/m2 09/14/2018 9:16am Height 59.75 inches 4'11.75" Weight 148.00 lb Heart Rate 69 /min BP Systolic 151 mmHg 145/59 left arm BP Diastolic 63 mmHg 145/59 left arm Body Temperature 96.3 F O2 % BldC Oximetry 99 % BMI (Body Mass Index) 29.1 kg/m2 07/31/2018 10:22am Height 60 inches 5'0" Weight 143.00 lb Heart Rate 82 /min BP Systolic Sitting 118 mmHg lue reg cuff BP Diastolic Sitting 62 mmHg lue reg cuff BP Systolic Standing 120 mmHg lue reg cuiff BP Diastolic Standing 64 mmHg lue reg cuiff BMI (Body Mass Index) 27.9 kg/m2 05/05/2018 9:08am Height 60 inches 5'0" Weight 143.00 lb Heart Rate 70 /min BP Systolic Sitting 130 mmHg BP Diastolic Sitting 68 mmHg Body Temperature 98.4 F O2 % BldC Oximetry 96 % BMI (Body Mass Index) 27.9 kg/m2 03/18/2018 10:17am Height 60 inches 5'0" Weight 147.00 lb no shoes Heart Rate 82 /min BP Systolic Sitting 120 mmHg lue reg cuff BP Diastolic Sitting 60 mmHg lue reg cuff BP Systolic Standing 118 mmHg lue reg cuff BP Diastolic Standing 64 mmHg lue reg cuff BMI (Body Mass Index) 28.7 kg/m2 03/18/2018 8:47am Weight 144.00 lb Heart Rate 68 /min BP Systolic Sitting 130 mmHg lue reg cuff BP Diastolic Sitting 60 mmHg lue reg cuff BP Systolic Standing 124 mmHg BP Diastolic Standing 62 mmHg Respiratory Rate 16 /min Ejection Fraction 60-65% 10/07/2017 echo 11/19/2017 10:31am Weight 144.00 lb Heart Rate 67 /min BP Systolic 140 mmHg BP Diastolic 60 mmHg Body Temperature 98.1 F O2 % BldC Oximetry 95 % 10/29/2017 9:55am Weight 146.00 lb Heart Rate 71 /min BP Systolic 162 mmHg BP Diastolic 60 mmHg Body Temperature 97.4 F O2 % BldC Oximetry 94 % 10/15/2017 10:16am Height 59 inches 4'11" Weight 148.00 lb with out shoes Heart Rate 76 /min BP Systolic Sitting 118 mmHg Rue reg cuff BP Diastolic Sitting 74 mmHg Rue reg cuff BP Systolic Standing 120 mmHg Rue reg cuff BP Diastolic Standing 62 mmHg Rue reg cuff Respiratory Rate 17 /min BMI (Body Mass Index) 29.9 kg/m2 Ejection Fraction 60-65% date 10/07/17 ECHO 09/10/2017 10:11am Height 59 inches 4'11" Weight 144.00 lb No shoes Heart Rate 66 /min BP Systolic Sitting 138 mmHg Rue lrg cuff BP Diastolic Sitting 64 mmHg Rue lrg cuff BP Systolic Standing 132 mmHg Rue lrg cuff BP Diastolic Standing 64 mmHg Rue lrg cuff Respiratory Rate 15 /min BMI (Body Mass Index) 29.1 kg/m2 Ejection Fraction 55-60% 07/11/2014-echo 05/01/2017 10:21am Height 60 inches 5'0" Weight 147.00 lb Heart Rate 71 /min BP Systolic 130 mmHg BP Diastolic 70 mmHg Body Temperature 98.4 F O2 % BldC Oximetry 97 % BMI (Body Mass Index) 28.7 kg/m2 12/11/2016 11:46am Weight 144.00 lb Heart Rate 90 /min BP Systolic 158 mmHg BP Diastolic 72 mmHg Body Temperature 97.9 F O2 % BldC Oximetry 97 % 10/15/2016 8:32am Height 60 inches 5'0" Weight 148.00 lb Heart Rate 76 /min BP Systolic 136 mmHg BP Diastolic 80 mmHg Body Temperature 97.8 F O2 % BldC Oximetry 95 % BMI (Body Mass Index) 28.9 kg/m2 09/13/2016 11:16am Height 60 inches 5'0" Weight 145.00 lb with shoes Heart Rate 70 /min BP Systolic Sitting 158 mmHg Rue reg cuff BP Diastolic Sitting 60 mmHg Rue reg cuff BP Systolic Standing 140 mmHg Rue reg cuff BP Diastolic Standing 64 mmHg Rue reg cuff Respiratory Rate 17 /min BMI (Body Mass Index) 28.3 kg/m2 Ejection Fraction 55-60% date 07/11/2014 ECHO 05/24/2016 8:47am Height 60 inches 5'0" Weight 147.00 lb BP Systolic 118 mmHg BP Diastolic 76 mmHg Pain Level 0 BMI (Body Mass Index) 28.7 kg/m2 04/11/2016 11:18am Height 60 inches 5'0" Weight 144.50 lb Heart Rate 73 /min BP Systolic Sitting 138 mmHg BP Diastolic Sitting 66 mmHg O2 % BldC Oximetry 98 % BMI (Body Mass Index) 28.2 kg/m2 01/08/2016 1:22pm Height 59.5 inches 4'11.50" Weight 147.00 lb Heart Rate 84 /min BP Systolic Sitting 128 mmHg BP Diastolic Sitting 60 mmHg Respiratory Rate 15 /min Body Temperature 98.0 F O2 % BldC Oximetry 98 % BMI (Body Mass Index) 29.2 kg/m2 10/19/2015 9:30am Height 59.5 inches 4'11.50" Weight 149.00 lb Heart Rate 84 /min BP Systolic Sitting 132 mmHg BP Diastolic Sitting 82 mmHg Respiratory Rate 15 /min Body Temperature 98.3 F O2 % BldC Oximetry 98 % BMI (Body Mass Index) 29.6 kg/m2 09/18/2015 8:41am Height 59.5 inches 4'11.50" Weight 147.00 lb Heart Rate 68 /min BP Systolic Sitting 130 mmHg BP Diastolic Sitting 80 mmHg Respiratory Rate 15 /min Body Temperature 98.0 F O2 % BldC Oximetry 98 % BMI (Body Mass Index) 29.2 kg/m2 09/15/2015 8:48am Height 59.5 inches 4'11.50" Weight 146.00 lb w/o shoes Heart Rate 70 /min reg BP Systolic Sitting 126 mmHg Rue, reg cuff BP Diastolic Sitting 84 mmHg Rue, reg cuff BP Systolic Standing 122 mmHg Rue BP Diastolic Standing 78 mmHg Rue Respiratory Rate 16 /min BMI (Body Mass Index) 29.0 kg/m2 Ejection Fraction 55-60% 07/11/14 echo 07/24/2015 2:19pm BP Systolic Sitting 150 mmHg BP Diastolic Sitting 65 mmHg Body Temperature 98.4 F Pain Level 3 O2 % BldC Oximetry 97 % 03/14/2015 9:20am Height 60.25 inches 5'0.25" Weight 144.00 lb Heart Rate 65 /min BP Systolic Sitting 136 mmHg BP Diastolic Sitting 57 mmHg BMI (Body Mass Index) 27.9 kg/m2 11/29/2014 9:52am Weight 144.00 lb Heart Rate 72 /min BP Systolic Sitting 152 mmHg BP Diastolic Sitting 62 mmHg Body Temperature 97.6 F 11/14/2014 8:54am Weight 138.00 lb Heart Rate 72 /min BP Systolic Sitting 158 mmHg BP Diastolic Sitting 62 mmHg Body Temperature 97.0 F 09/09/2014 12:51pm Height 59.75 inches 4'11.75" Weight 138.00 lb [...] BMI (Body Mass Index) 27.2 kg/m2 09/09/2014 8:43am Height 59.75 inches 4'11.75" Weight 139.75 lb Heart Rate 78 /min BP Systolic Sitting 138 mmHg BP Diastolic Sitting 70 mmHg Body Temperature 98.8 F O2 % BldC Oximetry 98 % BMI (Body Mass Index) 27.5 kg/m2 08/19/2014 8:49am Height 59.75 inches 4'11.75" Weight 140.00 lb Heart Rate 70 /min BP Systolic Sitting 132 mmHg BP Diastolic Sitting 60 mmHg Respiratory Rate 24 /min Body Temperature 99.8 F BMI (Body Mass Index) 27.6 kg/m2 08/12/2014 3:06pm Height 59.75 inches 4'11.75" Weight 139.00 lb Heart Rate 63 /min BP Systolic Sitting 162 mmHg BP Diastolic Sitting 63 mmHg BP Systolic Recheck 150 mmHg BP Diastolic Recheck 67 mmHg BMI (Body Mass Index) 27.4 kg/m2 07/28/2014 10:30am Height 59.75 inches 4'11.75" Weight 138.00 lb Heart Rate 62 /min BP Systolic 110 mmHg BP Diastolic 62 mmHg BP Systolic Recheck 138 mmHg BP Diastolic Recheck 68 mmHg Body Temperature 96.9 F BMI (Body Mass Index) 27.2 kg/m2 06/30/2014 9:22am Height 59.75 inches 4'11.75" Weight 142.00 lb Heart Rate 68 /min BP Systolic Sitting 138 mmHg BP Diastolic Sitting 62 mmHg BMI (Body Mass Index) 28.0 kg/m2 03/08/2014 3:29pm Height 59.75 inches 4'11.75" Weight 141.25 lb Heart Rate 64 /min BP Systolic Sitting 150 mmHg BP Diastolic Sitting 60 mmHg BMI (Body Mass Index) 27.8 kg/m2 01/05/2014 1:46pm Weight 142.00 lb Heart Rate 76 /min BP Systolic Sitting 152 mmHg BP Diastolic Sitting 68 mmHg Body Temperature 98.7 F 05/24/2013 10:31am Weight 142.00 lb Heart Rate 70 /min BP Systolic Sitting 128 mmHg BP Diastolic Sitting 80 mmHg 02/02/2013 10:58am Height 59.75 inches 4'11.75" Weight 140.00 lb Heart Rate 64 /min BP Systolic Sitting 154 mmHg BP Diastolic Sitting 64 mmHg BMI (Body Mass Index) 27.6 kg/m2 10/19/2012 10:38am Height 60 inches 5'0" Weight 139.00 lb Heart Rate 76 /min BP Systolic Sitting 156 mmHg BP Diastolic Sitting 60 mmHg Body Temperature 97.5 F Tympanically BMI (Body Mass Index) 27.1 kg/m2 08/12/2012 3:54pm Height 60 inches 5'0" Weight 138.00 lb Heart Rate 70 /min BP Systolic Sitting 124 mmHg BP Diastolic Sitting 74 mmHg BMI (Body Mass Index) 26.9 kg/m2 10/01/2011 10:15am Height 60 inches 5'0" Weight 142.00 lb Heart Rate 72 /min BP Systolic Sitting 138 mmHg BP Diastolic Sitting 72 mmHg BMI (Body Mass Index) 27.7 kg/m2 01/29/2011 3:15pm Height 60.25 inches 5'0.25" Weight 140.00 lb Heart Rate 66 /min BP Systolic Sitting 126 mmHg BP Diastolic Sitting 70 mmHg BMI (Body Mass Index) 27.1 kg/m2 11/14/2010 3:49pm Weight 143.00 lb Heart Rate 64 /min BP Systolic 110 mmHg BP Diastolic 70 mmHg Body Temperature 98.3 F 06/12/2010 9:37am Weight 145.50 lb Heart Rate 54 /min BP Systolic 118 mmHg BP Diastolic 76 mmHg Body Temperature 98.1 F Results Test Date Facility Test Result H/L Range Note Urine Culture And 11/30/2018 [facility] Urine SEE RESULT 1 , [address] Culture BELOW [place], [place] [id number] [phone] Poc Urinalysis 11/30/2018 [facility] Poc Glucose, Negative Negative [address] Urine [place], [place] [id number] [phone] Poc Bilirubin, Urine Negative Negative Poc Ketone, Urine 1+ Abnormal Negative Poc Specific [place], Urine 1.010 N 1.010-1.030 Poc Blood, Urine 2+ Abnormal Negative Poc pH, Urine 6.5 N 5-9 Poc Protein, Urine Negative Negative Poc Urobilinogen, Urine 0.2 Negative Poc Nitrite, Urine Negative Negative Poc Leukocytes, Urine 3+ Abnormal Negative Poc Color, Urine Yellow Poc Clarity, Urine Cloudy 3 Urine Culture And 11/09/2018 [facility] Urine SEE RESULT 4 , [address] [place] [address] [phone] Poc Urinalysis 11/09/2018 [facility] Poc Negative Negative [address] Glucose, [place] [address] Urine [phone] Poc Bilirubin, Urine Negative Negative Poc Ketone, Urine Trace Abnormal Negative Poc Specific [place], Urine 1.020 N 1.010-1.030 Poc Blood, Urine 2+ Abnormal Negative Poc pH, Urine 5.5 N 5-9 Poc Protein, Urine Trace Abnormal Negative Poc Urobilinogen, Urine 0.2 Negative Poc Nitrite, Urine Negative Negative Poc Leukocytes, Urine 1+ Abnormal Negative Poc Color, Urine Yellow Poc Clarity, Urine Cloudy 6 Laboratory test 09/14/2018 [facility] Cancer Ag (CA 25 U/mL < 46 [address] [place], [place] [id number] [phone] Comp Metabolic 09/14/2018 [facility] Sodium 139 mmol/L N 135- [address] [place], [place] [id number] [phone] Potassium 4.5 mmol/L N 3.5-5.0 Chloride 104 mmol/L N 101-111 Co2 Carbon Dioxide 29 mmol/L N 22-32 Anion Gap 6 mmol/L N 2-11 Glucose 102 mg/dL High 70-100 Blood Urea Nitrogen 23 mg/dL N 6-24 Creatinine 0.67 mg/dL N 0.51-0.95 BUN/Creatinine Ratio 34.3 High 8-20 Calcium 10.0 mg/dL N 8.6-10.3 Total Protein 7.3 g/dL N 6.4-8.9 Albumin 4.9 g/dL N 3.2-5.2 Globulin 2.4 g/dL N 2-4 Albumin/Globulin Ratio 2.0 N 1-3 Total Bilirubin 0.40 mg/dL N 0.2-1.0 Alkaline Phosphatase 72 U/L N 34-104 Alt 20 U/L N 7-52 Ast 28 U/L N 13-39 Egfr Non- 84.3 >60 Egfr 102.0 >60 8 CBC Auto Diff 09/14/2018 [facility] White Blood 5.4 10^3/uL N 3.5-10.[address] [place] [address] [phone] Red Blood Count 4.50 10^6/uL N 4.00-5.40 Hemoglobin 13.7 g/dL N 12.0-16.0 Hematocrit 41 % N 35-47 Mean Corpuscular Volume 92 fL N 80-97 Mean Corpuscular Hemoglobin 30 pg N 27-31 Mean Corpuscular HGB Conc 33 g/dL N 31-36 Red Cell Distribution Width 13 % N 10.5-15 Platelet Count 315 10^3/uL N 150-450 Mean Platelet Volume 7.7 fL N 7.4-10.4 Abs Neutrophils 2.8 10^3/uL N 1.5-7.7 Abs Lymphocytes 1.9 10^3/uL N 1.0-4.8 Abs Monocytes 0.5 10^3/uL N 0-0.8 Abs Eosinophils 0.1 10^3/uL N 0-0.6 Abs Basophils 0 10^3/uL N 0-0.2 Abs Nucleated RBC 0 10^3/uL Granulocyte % 52.7 % Lymphocyte % 36.2 % Monocyte % 8.6 % Eosinophil % 1.6 % Basophil % 0.9 % Nucleated Red Blood Cells % 0 Urine Culture And 05/30/2018 [facility] Urine SEE RESULT 9 , [address] Culture [place]OW [place], [place] [id number] [phone] Poc Urinalysis 05/30/2018 [facility] Poc Negative Negative [address] Glucose, [place] [address] Urine [phone] Poc Bilirubin, Urine Negative Negative Poc Ketone, Urine Negative Negative Poc Specific [place], Urine 1.015 N 1.010-1.030 Poc Blood, Urine Trace-intact Abnormal Negative Poc pH, Urine 7.0 N 5-9 Poc Protein, Urine Negative Negative Poc Urobilinogen, Urine 0.2 Negative Poc Nitrite, Urine Negative Negative Poc Leukocytes, Urine 3+ Abnormal Negative Poc Color, Urine Yellow Poc Clarity, Urine Clear 11 Lipid Profile 05/01/2018 [facility] Triglycerides 148 mg/dL 12 (Trig/Chol/HDL) [address] [place], [place] [id number] [phone] Cholesterol 233 mg/dL 13 HDL Cholesterol 66.0 mg/dL 14 LDL Cholesterol 137 mg/dL 15 Comp Metabolic Panel 05/01/2018 [facility] Sodium 141 mmol/L N 135-[address] [place] [address] [phone] Potassium 4.6 mmol/L N 3.5-5.0 Chloride 105 mmol/L N 101-111 Co2 Carbon Dioxide 29 mmol/L N 22-32 Anion Gap 7 mmol/L N 2-11 Glucose 100 mg/dL N 70-100 Blood Urea Nitrogen 20 mg/dL N 6-24 Creatinine 0.71 mg/dL N 0.51-0.95 BUN/Creatinine Ratio 28.2 High 8-20 Calcium 9.6 mg/dL N 8.6-10.3 Total Protein 6.8 g/dL N 6.4-8.9 Albumin 4.6 g/dL N 3.2-5.2 Globulin 2.2 g/dL N 2-4 Albumin/Globulin Ratio 2.1 N 1-3 Total Bilirubin 0.40 mg/dL N 0.2-1.0 Alkaline Phosphatase 60 U/L N 34-104 Alt 18 U/L N 7-52 Ast 27 U/L N 13-39 Egfr Non- 78.8 >60 Egfr 95.4 >60 16 Laboratory test 11/15/2017 [facility] Blood Urea 28 mg/dL High 6-[address] [place] [address] [phone] Creatinine 11/15/2017 [facility] Creatinine 0.67 mg/dL N 0.51- 0.[address] [place] [address] [phone] Egfr Non- 84.5 >60 Egfr 108.6 >60 17 Rapid Influenza 08/29/2017 [facility] Influenza A NEGATIVE Negative 18 A & B Molecular [address] [place] [address] [phone] Influenza B Molecular NEGATIVE Negative Laboratory test 05/08/2017 [facility] [place] 125 (Ovarian 19.7 U/mL N 0-35 [address] Cancer Ag) [place] [address] [phone] Lipid Profile 04/24/2017 [facility] Triglycerides 97 mg/dL N 20 (Trig/Chol/HDL) [address] [place], [place] [id number] [phone] Cholesterol 237 mg/dL N 21 HDL Cholesterol 69.3 mg/dL N 22 LDL Cholesterol 148 mg/dL N 23 Comp Metabolic Panel 04/24/2017 [facility] Sodium 139 mmol/L N 133-[address] [place], [place] [address] [phone] Potassium 4.6 mmol/L N 3.5-5.0 Chloride 103 mmol/L N 101-111 Co2 Carbon Dioxide 29 mmol/L N 22-32 Anion Gap 7 mmol/L N 2-11 Glucose 90 mg/dL N 70-100 Blood Urea Nitrogen 21 mg/dL N 6-24 Creatinine 0.71 mg/dL N 0.51-0.95 BUN/Creatinine Ratio 29.6 High 8-20 Calcium 9.7 mg/dL N 8.6-10.3 Total Protein 6.9 g/dL N 6.4-8.9 Albumin 4.3 g/dL N 3.2-5.2 Globulin 2.6 g/dL N 2-4 Albumin/Globulin Ratio 1.7 N 1-3 Total Bilirubin 0.60 mg/dL N 0.2-1.0 Alkaline Phosphatase 58 U/L N 34-104 Alt 15 U/L N 7-52 Ast 25 U/L N 13-39 Egfr Non- 79.0 N >60 Egfr 101.6 N >60 24 Laboratory test 04/24/2017 [facility] TSH 1.33 N 0.34-5.[address] (Thyroid mcIU/[place] [address] Stim Horm) [phone] Urine Culture And 01/29/2017 [facility] Urine SEE RESULT 26 , Sensitivities [address] Culture [address] [place], [place] [id number] [phone] Poc Urinalysis 01/29/2017 [facility] Poc Negative N Negative [address] Glucose, [place] [address] Urine [phone] Poc Bilirubin, Urine Negative N Negative Poc Ketone, Urine Negative N Negative Poc Specific [place], Urine 1.020 N 1.010-1.030 Poc Blood, Urine 2+ Abnormal Negative Poc pH, Urine 7.0 N 5-9 Poc Protein, Urine 2+ Abnormal Negative Poc Urobilinogen, Urine 0.2 N Negative Poc Nitrite, Urine Negative N Negative Poc Leukocytes, Urine 3+ Abnormal Negative Poc Color, Urine Yellow N Poc Clarity, Urine Cloudy N 28 Laboratory test 04/11/2016 [facility] [place] 125 (Ovarian 21.7 U/mL N 0-[address] Cancer Ag) [place] [address] [phone] Vitamin D Total 25(Oh) 42.6 ng/mL N 30-50 Laboratory test 04/08/2016 [facility] TSH (Thyroid 1.28 mcIU/mL N 0.34-5.[address] Stim Horm) [place] [address] [phone] Comp Metabolic 04/08/2016 [facility] Sodium 139 mmol/L N 133- [address] [place] [address] [phone] Potassium 4.1 mmol/L N 3.5-5.0 Chloride 106 mmol/L N 101-111 Co2 Carbon Dioxide 27 mmol/L N 22-32 Anion Gap 6 mmol/L N 2-11 Glucose 92 mg/dL N 70-100 Blood Urea Nitrogen 18 mg/dL N 6-24 Creatinine 0.72 mg/dL N 0.51-0.95 BUN/Creatinine Ratio 25.0 High 8-20 Calcium 9.3 mg/dL N 8.6-10.3 Total Protein 6.6 g/dL N 6.4-8.9 Albumin 4.1 g/dL N 3.2-5.2 Globulin 2.5 g/dL N 2-4 Albumin/Globulin Ratio 1.6 N 1-3 Total Bilirubin 0.30 mg/dL N 0.2-1.0 Alkaline Phosphatase 58 U/L N 34-104 Alt 16 U/L N 7-52 Ast 26 U/L N 13-39 Egfr Non- 77.9 N >60 Egfr 100.2 N >60 31 Lipid Profile 04/08/2016 [facility] Triglycerides 89 mg/dL N 32 (Trig/Chol/HDL) [address] [place] [address] [phone] Cholesterol 206 mg/dL N 33 HDL Cholesterol 59.7 mg/dL N 34 LDL Cholesterol 129 mg/dL N 35 Laboratory test 05/11/2015 [facility] Cytology SEE RESULT [address] [place] [address] [phone] Laboratory test 03/28/2015 Vitamin D 37.3 ng/mL N 30-50 finding Total 25(Oh) TSH (Thyroid Stim Horm) 1.25 ?IU/mL N 0.34-5.60 Laboratory test 11/25/2014 [facility] Creatine 89 U/L N 10- 223 37, [address] [place] [address] [phone] Basic Metabolic 11/25/2014 [facility] Sodium 142 N 133-[address] mmol/[place] [address] [phone] Potassium 4.1 mmol/L N 3.5-5.0 Chloride 106 mmol/L N 101-111 Co2 Carbon Dioxide 29 mmol/L N 22-32 Anion Gap 7 mmol/L N 2-11 Glucose 93 mg/dL N 70-100 Blood Urea Nitrogen 21 mg/dL N 6-24 Creatinine 0.76 mg/dL N 0.51-0.95 BUN/Creatinine Ratio 27.6 High 8-20 Calcium 9.5 mg/dL N 8.6-10.3 Egfr Non- 73.6 N >60 Egfr 94.7 N >60 39 Lipid Profile 11/25/2014 [facility] Triglycerides 105 mg/dL N 40 (Trig/Chol/HDL) [address] [place] [address] [phone] Cholesterol 200 mg/dL N 41 HDL Cholesterol 64.8 mg/dL N 42 LDL Cholesterol 114 mg/dL N 43 Laboratory test 06/26/2014 [facility] Troponin I 0.01 ng/mL N <0.03 44 finding [address] [place] [address] [phone] CBC Auto Diff 06/26/2014 [facility] White Blood 5.3 N 4.8- 10.[address] Count 10^3/[place] [address] [phone] Red Blood Count 4.03 10^6/uL N 4.0-5.4 Hemoglobin 12.5 g/dL N 12.0-16.0 Hematocrit 37 % N 35-47 Mean Corpuscular Volume 92 fL N 80-97 Mean Corpuscular Hemoglobin 31 pg N 27-31 Mean Corpuscular HGB Conc 34 g/dL N 31-36 Red Cell Distribution Width 13 % N 10.5-15 Platelet Count 258 10^3/uL N 150-450 Mean Platelet Volume 7 um3 Low 7.4-10.4 Abs Neutrophils 2.9 10^3/uL N 1.5-7.7 Abs Lymphocytes 1.6 10^3/uL N 1.0-4.8 Abs Monocytes 0.6 10^3/uL N 0-0.8 Abs Eosinophils 0.2 10^3/uL N 0-0.6 Abs Basophils 0 10^3/uL N 0-0.2 Abs Nucleated RBC 0.01 10^3/uL N Granulocyte % 54.5 % N 38-83 Lymphocyte % 31.1 % N 25-47 Monocyte % 10.5 % High 1-9 Eosinophil % 3.1 % N 0-6 Basophil % 0.8 % N 0-2 Nucleated Red Blood Cells % 0.2 N Comp Metabolic Panel 06/26/2014 [facility] Sodium 139 mmol/L N 133-145 [address] [place] [address] [phone] Potassium 3.6 mmol/L Low 3.7-5.6 Chloride 105 mmol/L N 101-111 Co2 Carbon Dioxide 27 mmol/L N 22-32 Anion Gap 7 mmol/L N 2-11 Glucose 104 mg/dL High 70-100 Blood Urea Nitrogen 22 mg/dL N 6-24 Creatinine 0.78 mg/dL N 0.51-0.95 BUN/Creatinine Ratio 28.2 High 8-20 Calcium 9.1 mg/dL N 8.6-10.3 Total Protein 6.3 g/dL Low 6.4-8.9 Albumin 4.1 g/dL N 3.2-5.2 Globulin 2.2 g/dL N 2-4 Albumin/Globulin Ratio 1.9 N 1-3 Total Bilirubin 0.30 mg/dL N 0.2-1.0 Alkaline Phosphatase 52 U/L N 34-104 Alt 18 U/L N 7-52 Ast 27 U/L N 13-39 Egfr Non- 71.4 N >60 Egfr 91.9 N >60 45 Laboratory test 06/26/2014 [facility] Troponin I 0.01 ng/mL N <0.03 [address] [place] [address] [phone] Vitamin D, 25 03/11/2014 [facility] 25-Hydroxy <4.0 ng/mL N Hydroxy [address] Vitamin [place]2 [place] [address] [phone] 25-Hydroxy Vitamin D3 44 ng/mL N 25-Hydroxy Vitamin D Total 44 ng/mL N 47 Laboratory test 03/11/2014 [facility] CA 125 Antigen 20.9 U/mL N 0-[address] [place] [address] [phone] Laboratory test 03/11/2014 [facility] TSH (Thyroid 0.90 N 0.34 -5.[address] Stimulating Horm) IU/mL 0 [place] [address] [phone] Lipid Profile 03/11/2014 [facility] Triglycerides 83 mg/dL N 48 (Trig/Chol/HDL) [address] [place] [address] [phone] Cholesterol 176 mg/dL N 49 HDL Cholesterol 68.6 mg/dL N 50 LDL Cholesterol 91 mg/dL N 51 Comp Metabolic Panel 03/11/2014 [facility] Sodium 139 mmol/L N 133-[address] [place] [address] [phone] Potassium 3.8 mmol/L N 3.7-5.6 Chloride 104 mmol/L N 101-111 Co2 Carbon Dioxide 31 mmol/L N 22-32 Anion Gap 4 mmol/L N 2-11 Glucose 93 mg/dL N 70-100 Blood Urea Nitrogen 25 mg/dL High 6-24 Creatinine 0.81 mg/dL N 0.51-0.95 BUN/Creatinine Ratio 30.9 High 8-20 Calcium 9.6 mg/dL N 8.6-10.3 Total Protein 6.9 g/dL N 6.4-8.9 Albumin 4.5 g/dL N 3.2-5.2 Globulin 2.4 g/dL N 2-4 Albumin/Globulin Ratio 1.9 N 1-3 Total Bilirubin 0.40 mg/dL N 0.2-1.0 Alkaline Phosphatase 49 U/L N 34-104 Alt 20 U/L N 7-52 Ast 29 U/L N 13-39 Egfr Non- 68.4 N >60 Egfr 87.9 N >60 52 Liver Function 08/23/2013 [facility] Total Protein 6.9 g/dL 6.2-8.1 Panel [address] [place] [address] [phone] Albumin 4.3 g/dL 3.2-5.2 Globulin 2.6 g/dL 2-4 Albumin/Globulin Ratio 1.7 1-3 Total Bilirubin 0.7 mg/dL 0.4-1.5 Direct Bilirubin 0.1 mg/dL 0.1-0.5 Indirect Bilirubin 0.6 mg/dL 0.3-1.0 Alkaline Phosphatase 53 U/L 30-110 Alt 29 U/L 14-54 Ast 41 U/L 12-42 Lipid Profile 08/23/2013 [facility] Triglycerides 120 mg/dL 40-200 (Trig/Chol/HDL) [address] [place] [address] [phone] Cholesterol 214 mg/dL High Less than 200 HDL Cholesterol 85 mg/dL High 40-60 53 Cholesterol/HDL Ratio 2.5 Average 1-4.44 LDL Cholesterol 105.0 High Less Than 100 54 Laboratory test 02/04/2013 [facility] [place] 125 Antigen 15.5 U/mL 2.0-35.0 55 finding [address] [place] [address] [phone] Lipid Profile 01/28/2013 [facility] Triglycerides 68 mg/dL 40 -200 (Trig/Chol/HDL) [address] [place], [place] [phone] Cholesterol 179 mg/dL Less than 200 HDL Cholesterol 73 mg/dL High 40-60 56 Cholesterol/HDL Ratio 2.5 Average 1-4.44 LDL Cholesterol 92.4 Less Than 100 57 Comp Metabolic Panel 01/28/2013 [facility] Sodium 143 mmol/L 133-145 [address] [place] [address] [phone] Potassium 4.6 mmol/L 3.5-5.0 Chloride 108 mmol/L [...] Egfr Non- 97.2 >60 Egfr 125.0 >60 58 Laboratory test 01/28/2013 [facility] TSH (Thyroid 1.06 0.34- 5.[address] Stimulating miu/[place] [address] Horm) [phone] Vitamin D, 25 01/28/2013 [facility] 25-Hydroxy <4.0 ng/mL Hydroxy [address] Vitamin [place]2 [place] [address] [phone] 25-Hydroxy Vitamin D3 39 ng/mL 25-Hydroxy Vitamin D Total 39 ng/mL 60 Ua Routine 10/19/2012 [facility] Ua Specific [place] 1.005 Ua PH 5 Ua Color yellow Ua Appera clear Ua WBC trace Ua Protein negative Ua Glucose negative Ua Ketones negative Ua Bilirubin negative Ua Urobilinogen negative Ua Nitrite negative Ua Occult Blood negative Urine Culture And 10/19/2012 [facility] Urine Culture (SEE NOTE ) [address] [place] [address] [phone] Urine Culture And 10/11/2012 [facility] Urine Culture (SEE NOTE ) [address] [place] [address] [phone] Laboratory test 07/27/2012 [facility] Inr 0.94 0.82-[address] [place] [address] [phone] CBC Auto Diff 07/27/2012 [facility] White Blood 4.9 10^3/uL 4.8-[address] Count .8 [place] [address] [phone] Red Blood Count 4.26 10^6/uL 4.0-5.4 Hemoglobin [...] Red Blood Cells % 0 Laboratory test 12/30/2011 [facility] CA 125 17.4 2.0-35.0 64, [address] (Ovarian U/[place] [address] Cancer Ag) [phone] Creatinine 12/30/2011 [facility] Creatinine 0.7 0.50-1.[address] mg/[place] [address] [phone] One Over Creatinine 1.42 eGFR Non- 81.6 > 60 eGFR 104.9 > 60 66 Laboratory test 12/30/2011 [facility] BUN 18 mg/dL 6-[address] [place] [address] [phone] CBC Auto Diff 12/30/2011 [facility] White Blood 6.3 CUMM 4.8- 10.[address] [place] [address] [phone] Red Cell Count 4.10 CUMM Low 4.2-5.4 Hemoglobin 12.9 g/dL 12.0-16.0 Hematocrit 37 % 35-47 Mean Corpuscular Volume 91 um3 79-97 Mean Corpuscular Hemoglob 31 pg 27-31 Mean Corpuscular HGB Cone 34 g/dL 32-36 Redcell Distribution WDTH 14 % 10.5-15 Platelet Count 273 CUMM 150-450 Mean Platelet Volume 8.1 um3 7.4-10.4 Gran % 60.1 % 38-83 Lymph % 32.2 % 25-47 Mononuclear % 6.0 % 1-9 Eosinophil % 1.0 % 0-6 Basophil % 0.7 % 0-2 Abs Lymphs 2.0 1.0-4.8 Abs Mononuclear 0.4 0-0.8 Absolute Neutrophil Count 3.8 1.5-7.7 Abs Eosinophils 0.1 0-0.6 Abs Basophils 0 0-0.2 Vitamin D, 25 10/21/2011 [facility] 25-Hydroxy Vitamin <4.0 ng/ mL () Hydroxy [address] D2 [place] [address] [phone] 25-Hydroxy Vitamin D3 42 ng/mL () 25-Hydroxy Vitamin D Total 42 ng/mL () 67 Vitamin D 1,25 10/21/2011 [facility] Vitamin D, 65 pg/mL 18- 78 68 And Vitamin D,[address] 1,25 [place] [address] [phone] Laboratory test 10/21/2011 [facility] C Reactive 0.6 mg/L Less Than [address] Protein High 3 [place] [address] Sensit [phone] TSH 1.57 MIU/ML 0.34-5.60 Lipid Profile 10/21/2011 [facility] Triglyceride 109 mg/dL 40 -200 (Trig/Chol/HDL) [address] [place] [address] [phone] Cholesterol 201 mg/dL High Less Than 200 70 High Density Lipoprotein 71 mg/dL High 40-60 71 Cholesterol/HDL Ratio 2.83 AVERAGE 1-4.44 Low Density Lipoprotein 108 mg/dL High Less Than 100 72 Comp Metabolic Panel 10/21/2011 [facility] Sodium 139 mmol/L 135-[address] [place] [address] [phone] Potassium 4.3 mmol/L 3.5-5.0 Chloride 105 mmol/L 101-111 Co2 (Carbon Dioxide) 28.0 mmol/L 22-32 Anion Gap 6.0 mmol/L 2-11 73 Glucose 97 mg/dL 70-100 BUN 18 mg/dL 6-24 Creatinine 0.8 mg/dL 0.50-1.40 One Over Creatinine 1.25 BUN/Creatinine Ratio 22.5 High 8-20 Calcium 9.5 mg/dL 8.1-9.9 Total Protein 6.8 GM/DL 6.2-8.1 Albumin 4.3 GM/DL 3.2-5.2 Globulin 2.5 GM/DL 2-4 Albumin/Globulin Ratio 1.7 1-3 Bilirubin Total 0.6 mg/dL 0.4-1.5 74 Alkaline Phosphatase 61 U/L 30-110 Alt (SGPT) 24 U/L 14-54 Ast (Sgot) 33 U/L 12-42 eGFR Non- 69.9 > 60 eGFR 89.9 > 60 75 1 [id number] 2 SEE RESULT BELOW Name: ZENA POWER : [address]: Tito Lee MD Acct: [id number] Unit: [id number] AGE: 83 Location: [facility] Re11/30/18 SEX: F Status: DEP ER SPEC: [id number] ROCCO: 11/30/18-[address]: Eusebio MCCAULEY REQ: [id number] RECD: 11/30/18 STATUS: CHELSIE PALACIOS DR: Christi Lee MD _ SOURCE: URINE SPDESC: ORDERED: Urine Culture COMMENTS: [id number] Procedure Result Reported Site Urine Culture Final 12/02/18- 0815 ML Organism 1 ESCHERICHIA COLI [place] Count >100,000 (Many) CFU/ML 1. ESCHERICHIA COLI M.I.C. RX --------- ------ Ampicillin <=2 S Cefazolin <=4 S Cefepime <=1 S Ceftriaxone <=1 S Ciprofloxacin <=0.25 S Gentamicin <=1 S Levofloxacin <=0.12 S Meropenem <=0.25 S Nitrofurantoin <=16 S Tetracycline <=1 S Pipercillin/Tazobactam <=4 S Trimethoprim/Sulfamethoxazole <=20 S Amoxicillin/Clavulanic Acid <=2 S Aztreonam <=1 S Contact the Microbiology Department for any additional antibiotic reporting. * ML - Main Lab . END OF REPORT DEPARTMENT OF PATHOLOGY, [address] [place] [address] Dilip Graff M.D. Director [facility] # [id number] Marker Maker: [id number] 5 SEE RESULT BELOW Name: ZENA POWER : [address]: Rodri Ward MD Acct: [id number] Unit: [id number] AGE: 83 Location: [facility] Re11/09/18 SEX: F Status: DEP ER SPEC: [id number] ROCCO: 11/09/18-[address] [facility] [address]: Rodri Ward MD REQ: [id number] RECD: 11/09/18 STATUS: CHELSIE PALACIOS DR: Christi Richmond MD _ SOURCE: URINE SPDESC: ORDERED: Urine Culture COMMENTS: [id number] Procedure Result Reported Site Urine Culture Final 11/11/18- 0815 ML Organism 1 ESCHERICHIA COLI [place] Count >100,000 (Many) CFU/ML 1. ESCHERICHIA COLI M.I.C. RX --------- ------ Ampicillin <=2 S Cefazolin <=4 S Cefepime <=1 S Ceftriaxone <=1 S Ciprofloxacin <=0.25 S Gentamicin <=1 S Levofloxacin <=0.12 S Meropenem <=0.25 S Nitrofurantoin <=16 S Tetracycline <=1 S Pipercillin/Tazobactam <=4 S Trimethoprim/Sulfamethoxazole <=20 S Amoxicillin/Clavulanic Acid <=2 S Aztreonam <=1 S Contact the Microbiology Department for any additional antibiotic reporting. * ML - Main Lab . END OF REPORT DEPARTMENT OF PATHOLOGY, [address] [place] [address] Dilip Graff M.D. Director [facility] # [id number] Marker Maker: [id number] ADDITIONAL INFORMATION The testing method is an electrochemiluminescence assay manufactured by [employer] and performed on the Jose Alejandro system. Values obtained with different assay methods or kits may be different and cannot be used interchangeably. Test results cannot be interpreted as absolute evidence for the presence or absence of malignant disease. Test Performed by: [facility] - [address] [address] 8 Because ethnic data is not always readily [...] 15-29 5 Kidney failure <15 (or dialysis) 9 [id number] 10 SEE RESULT BELOW Name: ZENA POWER Susanne : [address]: Tiot Lee MD Acct: [id number] Unit: [id number] AGE: 83 Location: [facility] Re05/30/18 SEX: F Status: DEP ER SPEC: [id number] ROCCO: 05/30/[address] [facility] [address]: Tito Lee MD REQ: [id number] RECD: 05/30/18 STATUS: COMP RAHEEM DR: [facility] Christi Richmond MD _ SOURCE: URINE SPDESC: ORDERED: Urine Culture COMMENTS: [id number] Procedure Result Reported Site Urine Culture Final 06/01/18- 0704 ML Organism 1 ESCHERICHIA COLI [place] Count 25-50,000 (Moderate) CFU/ML 1. ESCHERICHIA COLI M.I.C. RX --------- ------ Ampicillin <=2 S Cefazolin <=4 S Cefepime <=1 S Ceftriaxone <=1 S Ciprofloxacin <=0.25 S Gentamicin <=1 S Levofloxacin <=0.12 S Meropenem <=0.25 S Nitrofurantoin <=16 S Tetracycline <=1 S Pipercillin/Tazobactam <=4 S Trimethoprim/Sulfamethoxazole <=20 S Amoxicillin/Clavulanic Acid <=2 S Aztreonam <=1 S Contact the Microbiology Department for any additional antibiotic reporting. * ML - Main Lab . END OF REPORT DEPARTMENT OF PATHOLOGY, [address] [place] [address] Dilip Graff M.D. Director [facility] # [id number] 11 Marker Maker: [id number] Desirable: <150 Borderline High: 150-199 High: 200-499 Very High: >500 13 Desirable: <200 Borderline High: 200-239 High: >239 14 Low: <40 Desirable: 40-60 High: >60 15 Desirable: <100 Near Optimal: 100-129 Borderline High: 130-159 High: 160-189 Very High: >189 16 Because ethnic data is not always readily [...] 15-29 5 Kidney failure <15 (or dialysis) 17 Because ethnic data is not always readily [...] 15-29 5 Kidney failure <15 (or dialysis) 18 Marker Maker: [id number] 19 Instrument used is [employer] DXI 600. The assay is a two-site immunoenzymatic "sandwich" assay. Do not interpret CA125 levels as absolute evidence of the presence or the absence of malignant disease. Use in conjunction with information from the clinical evaluation of the patient and other diagnostic procedures. Values obtained with different assay methods cannot be used interchangeably. 20 Desirable <150 Borderline high 150-199 High 200-499 Very High >500 21 Desirable <200 Borderline high 200-239 High >239 22 Low <40 Desirable: 40-60 High: >60 23 Desirable: <100 mg/dL Near Optimal: 100-129 mg/dL Borderline High: 130-159 mg/dL High: 160-189 mg/dL Very High: >189 mg/dL 24 Because ethnic data is not always readily [...] 15-29 5 Kidney failure <15 (or dialysis) 25 FASTING 10 HOUR 26 [id number] 27 SEE RESULT BELOW Name: ZENA POWER : [address]: Zena Yuen MD Acct: [id number] Unit: [id number] AGE: 81 Location: [facility] Re01/29/17 SEX: F Status: DEP ER SPEC: [id number] ROCCO: 01/29/[address] [facility] [address]: Zena Yuen MD REQ: [id number] RECD: 01/30/17 STATUS: CHELSIE PALACIOS DR: Amanda Sutton RESEARCH MANAGER _ SOURCE: URINE SPDESC: ORDERED: Urine Culture COMMENTS: [id number] Procedure Result Reported Site Urine Culture Final 02/01/17- 728 ML Organism 1 ESCHERICHIA COLI [place] Count 75-100,000 (Many) CFU/ML 1. ESCHERICHIA COLI [...] antibiotic reporting. * ML - MAIN LAB (PSYCHIATRIC) . END OF REPORT * ML=Testing performed at Main Lab DEPARTMENT OF PATHOLOGY, [address] [place] [address] Dilip Graff M.D. Director [facility] # [id number] 28 Marker Maker: [id number] Instrument used is [employer]elly DXI 600. The assay is a two-site immunoenzymatic "sandwich" assay. Do not interpret CA125 levels as absolute evidence of the presence or the absence of malignant disease. Use in conjunction with information from the clinical evaluation of the patient and other diagnostic procedures. Values obtained with different assay methods cannot be used interchangeably. 30 FASTING 10 HOUR 31 Because ethnic data is not always readily [...] 15-29 5 Kidney failure <15 (or dialysis) 32 Desirable <150 Borderline high 150-199 High 200-499 Very High >500 33 Desirable <200 Borderline high 200-239 High >239 34 Low <40 Desirable: 40-60 High: >60 35 Desirable: <100 mg/dL Near Optimal: 100-129 mg/dL Borderline High: 130-159 mg/dL High: 160-189 mg/dL Very High: >189 mg/dL 36 SEE RESULT BELOW Name: ZENA POWER : [address]: Benigno Quiles MD Acct: [id number] Unit: [id number] AGE: 80 Location: THYROID Re05/11/15 SEX: F Status: REG REF SPEC: [id number] ROCCO: 05/11/15-[address] [facility] [address]: Mukund Darden MD REQ: [id number] RECD: 05/11/15 STATUS: SUSHILA PALACIOS DR: Benigno Sutton RESEARCH MANAGER _ ORDERED: FN ASP DEEP, FNA Imme [...] performed at Main Lab DEPARTMENT OF PATHOLOGY, [address] [place], [place] [address] Dilip Graff M.D. Director [facility] # [id number] RUN DATE: 05/11/15 [facility] LAB LIVE PAGE 2 Patient: ZENA POWER [id number] (Continued) GROSS DESCRIPTION (Continued) GROSS DESCRIPTION 7- alcohol fixed slide(s) 2 - passes Signed (signature on file) Carmel Delvalle MD [phone] END OF REPORT * ML=Testing performed at Main Lab DEPARTMENT OF PATHOLOGY, [facility] [place], [place] [address] Dilip Graff M.D. Director [facility] # [id number] 37 PT IS FASTING 38 PT IS FASTING 39 Because ethnic data is not always readily [...] 15-29 5 Kidney failure <15 (or dialysis) 40 Desirable <150 Borderline high 150-199 High 200-499 Very High >500 41 Desirable <200 Borderline high 200-239 High >239 42 Low <40 Desirable: 40-60 High: >60 43 Desirable: <100 mg/dL Near Optimal: 100-129 mg/dL Borderline High: 130-159 mg/dL High: 160-189 mg/dL Very High: >189 mg/dL 44 Reference Range and Interpretation: TnI (ng/mL) Interpretation Less Than 0.03 ng/mL Not supportive of diagnosis of HI 0.03 - 0.50 ng/mL Indeterminate: suggest serial studies if clinically indicated. Greater than 0.5 ng/mL Consistent with diagnosis of HI 45 Because ethnic data is not always [...] 5 Kidney failure <15 (or dialysis) 46 Reference Range and Interpretation: TnI (ng/mL) Interpretation Less Than 0.03 ng/mL Not supportive of diagnosis of HI 0.03 - 0.50 ng/mL Indeterminate: suggest serial studies if clinically indicated. Greater than 0.5 ng/mL Consistent with diagnosis of HI 47 -- REFERENCE VALUE -- 25-HYDROXY D TOTAL (D2+D3) Optimum levels in the healthy population are 20-50, patients with bone disease may benefit from higher levels within this range. Test Performed by: [facility] [place] [address] Distribution Center Administrator: Salvador Silva III, M.D. 48 Desirable <150 Borderline high 150-199 High 200-499 Very High >500 49 Desirable <200 Borderline high 200-239 High >239 50 Low <40 Desirable: 40-60 High: >60 51 Desirable <100 Near Optimal 100-129 Borderline high 130-159 High 160-189 Very High >189 52 Because ethnic data is not always readily [...] 15-29 5 Kidney failure <15 (or dialysis) 53 HDL Interpretation: Undesirable: High Risk: Less than 40 mg/dL Desirable: Low Risk: Greater than 60 mg/dL 54 LDL Interpretation: Low Risk Optimal Level: LDL Less than 100 mg/dL Near or Above Optimal: LDL 100-129 mg/dL Borderline High Risk: LDL 130-159 mg/dL High Risk: LDL 160-189 mg/dL Very High Risk: LDL Greater than 189 mg/dL 55 The CA 125 assay is not recommended as a cancer screening test, but rather as an aid in monitoring response to therapy for patients with epithelial ovarian cancer. Serial testing for patients CA 125 assay values should be used in conjunction with other methods used for screening ovarian cancer. Assayed by Chemiluminescence Microparticle Immunoassay on the [employer] Access2. The values obtained with different assay methods or kits cannot be used interchangeably. 56 HDL Interpretation: Undesirable: High Risk: Less than 40 mg/dL Desirable: Low Risk: Greater than 60 mg/dL 57 LDL Interpretation: Low Risk Optimal Level: LDL Less than 100 mg/dL Near or Above Optimal: LDL 100-129 mg/dL Borderline High Risk: LDL 130-159 mg/dL High Risk: LDL 160-189 mg/dL Very High Risk: LDL Greater than 189 mg/dL 58 Because ethnic data is not always readily [...] 15-29 5 Kidney failure <15 (or dialysis) 59 FASTING 12 HOUR 60 -- REFERENCE VALUE -- 25-HYDROXY D TOTAL (D2+D3) Optimum levels in the normal population are 25-80 Test Performed by: [facility] - [address] [address] Distribution Center Administrator: Salvador Silva III, M.D. 61 RUN DATE: 10/21/12 [facility] LAB LIVE PAGE 1 RUN TIME: [address] [place] [address] Specimen Inquiry Name: ZEAN POWER : [address]: Amanda Sutton NP Acct: [id number] Unit: [id number] AGE: 77 Location: [facility] Re10/19/12 SEX: F Status: REG REF SPEC: [id number] ROCCO: 10/19/12-[address] [facility] [address]: Amanda Sutton NP REQ: [id number] RECD: 10/19/12 STATUS: COMP _ SOURCE: URINE SPDESC: ORDERED: Urine Culture QUERIES: [employer] Number [id number] Procedure Result Verified Site Urine Culture Final 10/21/12- 36 ML No Growth Day 2 (<1,000 CFU/mL) END OF REPORT * ML=Testing performed at Main Lab DEPARTMENT OF PATHOLOGY, [facility] [employer] [place], [place] [address] Dilip Graff M.D. Director [facility] Permit #[id number] 62 RUN DATE: 10/14/12 [facility] LAB LIVE PAGE 1 RUN TIME: 924 [facility] [employer] [place], [place] [address] Specimen Inquiry Name: ZENA POWER : [address]: Zena Yuen MD Acct: [id number] Unit: [id number] AGE: 77 Location: [facility] Re10/11/12 SEX: F Status: DEP ER SPEC: [id number] ROCCO: 10/11/12-[address] [facility] [address]: Lacy Metcalf MD REQ: [id number] RECD: 10/12/12 STATUS: CHELSIE PALACIOS DR: [facility] _ SOURCE: URINE SPDESC: ORDERED: Urine Culture Procedure Result Verified Site Urine Culture Final 10/14/12- 924 ML No Growth Day 2 (<1,000 CFU/mL) END OF REPORT * ML=Testing performed at Main Lab DEPARTMENT OF PATHOLOGY, [address] [place] [address] Dilip Graff M.D. Director [facility] Permit #[id number] 63 The INR(International Normalized Ratio) was adopted by the World Health Organization (WHO) in 1983 as a standardized system of reporting PT (Prothrombin Time). The Centers for Disease Control (CDC) states that reporting of PT results in INR only is the preferred method. Recommended INR for Patients on Oral Anticoagulants Prophylaxis 2.0 - 3.0 Treatment of thrombosis 2.0 - 3.0 Prevention of embolism 2.0 - 3.0 Prevention of embolism from prosthetic heart valves 2.5 - 3.[address] FELIX AT FAX NUMBER [phone] 65 Assay by chemiluminescence microparticle immunoassay on the [employer] Access[employer]. The CA 125 assay is not [...] of the presence or absence of malignancy. 66 Because ethnic data is not always readily [...] 15-29 5 Kidney failure <15 (or dialysis) 67 -- REFERENCE VALUE -- 25-HYDROXY D TOTAL (D2+D3) Optimum levels in the normal population are 25-80 Test Performed by: [facility] [address] [place] [address] Distribution Center Administrator: Salvador Silva III, M.D. 68 Test Performed by: [facility] [address] [place] [address] Distribution Center Administrator: Salvador Silva III, M.D. 69 Less Than 1.0......Low Risk of Cardiovascular Disease 1.0-3.0............Medium Risk (<2 Fold Increase) Greater Than 3.0...High Risk (Approximately 2-Fold Increase) 70 CHOLESTEROL INTERPRETATION: Desirable: Less than 200 MG/DL Borderline-High Risk: 200-239 MG/DL High-Risk: 240 MG/DL and over 71 HDL INTERPRETATION: Undesirable: High Risk: Less than 40 MG/DL Desirable: Low Risk: Greater than 60 MG/DL 72 LDL INTERPRETATION: Low Risk Optimal Level: LDL Less than 100 MG/DL Near or Above Optimal: LDL 100-129 MG/DL Borderline High Risk: LDL 130-159 MG/DL High Risk: LDL 160-189 MG/DL Very High Risk: LDL Greater than 189 MG/DL 73 Anion gap measurement may be of limited value in the presence of any alkalosis, especially in a combined acid base disorder. . 74 A metabolite of Naproxen, O-desmethylnaproxen, has been shown to interfere with the Jendrassik-Trooper method for measuring total bilirubin. Samples from patients who have taken Naproxen have shown spurious elevation in total bilirubin levels. 75 Because ethnic data is not always readily [...] 15-29 5 Kidney failure <15 (or dialysis) Procedures Date Code Description Status 02/12/2019 38839 EKG Tracing & Interpretation Completed 01/28/2019 68689 ECHO Transthoracic, Real-Time 2D With Doppler And Completed Color Flow 01/28/2019 52108 ECHO Transthoracic, Real-Time 2D With Doppler And Completed Color Flow 07/29/2018 05489 ECHO Transthoracic, Real-Time 2D With Doppler And Completed Color Flow 07/29/2018 20498 ECHO Transthoracic, Real-Time 2D With Doppler And Completed Color Flow 05/13/2018 [id number] Mammogram Completed 10/07/2017 00260 ECHO Transthoracic, Real-Time 2D With Doppler And Completed Color Flow 10/07/2017 52757 ECHO Transthoracic, Real-Time 2D With Doppler And Completed Color Flow 10/07/2017 06078 ECHO Transthoracic, Real-Time 2D With Doppler And Completed Color Flow 09/19/2017 05151 Stress Test Completed 09/19/2017 83392 Myocardial Perfusion Imaging Tomographic (Spect) Completed Multiple Studies 09/10/2017 33510 EKG Tracing & Interpretation Completed 05/08/2017 [id number] Mammogram Completed 09/13/2016 49137 EKG Tracing & Interpretation Completed 05/03/2016 [id number] Mammogram Completed 04/24/2016 [id number] Bone Mineral Density Test Completed 09/15/2015 26028 EKG Tracing & Interpretation Completed 03/28/2015 [id number] Mammogram Completed 12/05/2014 [id number] Colonoscopy Completed 09/09/2014 28986 EKG Tracing & Interpretation Completed 07/14/2014 73291 Stress Test Completed 07/11/2014 11625 ECHO Transthoracic, Real-Time 2D With Doppler And Completed Color Flow 03/14/2014 [id number] Bone Mineral Density Test Completed 03/14/2014 [id number] Mammogram Completed 03/02/2013 [id number] Mammogram Completed 02/02/2013 40932 Remove Impacted Cerumen Completed 02/02/2013 95811 EKG Tracing & Interpretation Completed 02/28/2012 [id number] Mammogram Completed 10/21/2011 [id number] Bone Mineral Density Test Completed 10/01/2011 83781 EKG Tracing & Interpretation Completed 02/26/2011 [id number] Mammogram Completed 04/09/2010 [id number] Colonoscopy Completed 02/20/2010 [id number] Mammogram Completed 02/13/2010 [id number] Colonoscopy Completed 02/13/2010 30053 EKG Tracing & Interpretation Completed 01/17/2009 25058 EKG Tracing & Interpretation Completed 05/02/2008 [id number] Diabetic Foot Exam Completed 01/12/2008 11924 EKG Tracing & Interpretation Completed 01/12/2008 34451 EKG Tracing & Interpretation Completed 01/13/2007 [id number] Bone Mineral Density Test Completed 01/05/2007 96340 EKG Tracing & Interpretation Completed 01/05/2007 65936 EKG Tracing & Interpretation Completed Encounters Type Date Location Provider Dx Diagnosis Office Visit 11/02/2018 Truong Sutton, I10 Essential (primary ) 10:00a Medicine - [facility] N.[facility]. hypertension Office Visit 09/14/2018 Truong Sutton, Z01.818 Encounter for other 9:20a Medicine - [facility] N.P. preprocedural examination H26.9 Unspecified cataract E78.00 Pure hypercholesterolemia, unspecified I10 Essential (primary) hypertension Office Visit 07/31/2018 10:30a [facility] Flako Hernandez I35.1 Nonrheumatic aortic Of Truong Vicente M.D. (valve) insufficiency I10 Essential (primary) hypertension Office Visit 03/18/2018 8:45a [facility] Flako Hernandez I10 Essential (primary) Of Tru[facility] Vicente M.D. hypertension I35.1 Nonrheumatic aortic (valve) insufficiency Office Visit 11/19/2017 10:20a [facility] Amanda Sutton, I10 Essential ( primary) Medicine - [facility] N.P. hypertension Office Visit 10/29/2017 10:00a [facility] Amanda Sutton, I10 Essential ( primary) Medicine - [facility] N.P. hypertension J18.9 Pneumonia, unspecified organism H91.93 Unspecified hearing loss, bilateral Office Visit 10/15/2017 10:30a [facility] Flako Hernandez I10 Essential (primary) Of Truong Vicente M.D. hypertension I35.1 Nonrheumatic aortic (valve) insufficiency Office Visit 09/10/2017 10:30a [facility] Flako Hernandez I35.1 Nonrheumatic aortic Of Truong Vicente M.D. (valve) insufficiency I10 Essential (primary) hypertension R55 Syncope and collapse Office Visit 05/01/2017 10:00a [facility] Amanda Sutton, Z00.01 Encounter for Medicine - [facility] N.P. 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 hypertension R32 Unspecified urinary incontinence Office Visit 10/15/2016 [facility] Amanda I10 Essential (primary) 8:40a Medicine - Varn, N.P. 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 Office Visit 04/11/2016 11:00a [facility] Amanda Sutton, Z00.01 Encounter for Medicine - [facility] N.P. 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 hearing loss, [facility] bilateral I10 Essential (primary) hypertension Office Visit 10/19/2015 9:40a [facility] Amanda Sutton, I10 Essential ( primary) Medicine - [facility] N.P. hypertension Office Visit 09/18/2015 8:40a [facility] Amanda Sutton, I10 Essential ( primary) Medicine - [facility] N.P. hypertension Office Visit 09/15/2015 9:00a Rebekah Hernandez I35.1 Nonrheumatic aortic Cardiology Of [facility] Vicente (valve) Lobster Man insufficiency R94.31 Abnormal electrocardiogram [ECG] [EKG] I10 Essential (primary) hypertension Office Visit 07/24/2015 2:20p [facility] Amanda Sutton M94.0 Chondrocostal Medicine - N.P. junction syndrome [facility] [Tietze] R07.89 Other chest pain Office Visit 03/14/2015 9:20a [facility] Amanda Sutton V70.0 Examination Medicine - N.P. General Medical [facility] Routine AT Health Care Facility V76.10 Screening For Malignant Neoplasm Breast 401.1 Hypertension Benign 272.4 Hyperlipidemia Other Unspec 240.9 Goiter Unspec 733.90 Bone & Cartilage Disorder Unspec 268.9 Vitamin D Deficiency Unspec 780.52 Insomnia Unspecified v03.82 Streptococcus Pneumoniae Vaccination Spec Other Office Visit 11/29/2014 10:00a [facility] Amanda Sutton, 401.1 Hypertension Benign Medicine - N.P. [facility] 272.4 Hyperlipidemia Other Unspec 401.9 Hypertension Unspec Office Visit 11/14/2014 9:00a [facility] Amanda Sutton, 272.4 Hyperlipidemia Other Medicine - N.P. Unspec [facility] 729.5 Pain In Limb 401.1 Hypertension Benign V76.51 Special Screening For Malignant Neoplasms Colon Office Visit 09/09/2014 1:00p [facility] Flako Hernandez 424.1 Aortic Valve Of [facility] Bam Vicente Disorder 401.1 Hypertension Benign Office Visit 09/09/2014 8:40a [facility] Amanda Sutton, 401.1 Hypertension Benign Medicine - N.P. [facility] Office Visit 08/19/2014 8:40a [facility] Lisa Beltran, 401.1 Hypertension Benign Medicine - M.D. [facility] 466.0 Bronchitis Acute Office Visit 08/12/2014 3:00p [facility] Lisa Beltran, 401.1 Hypertension Benign Medicine - M.D. [facility] 429.3 Cardiomegaly Office Visit 07/28/2014 10:40a [facility] Amanda Sutton, 530.81 Esophageal Reflux Medicine - N.P. [facility] 401.1 Hypertension Benign Office Visit 06/30/2014 9:20a [facility] Amanda Sutton, 786.50 Pain Chest Medicine - [facility] N.P. Unspec 530.81 Esophageal Reflux Office Visit 01/05/2014 2:00p [facility] Lacy Metcalf, 401.1 Hypertension Benign Medicine - [facility] M.D., FACP 780.52 Insomnia Unspecified 268.9 Vitamin D Deficiency Unspec 183.0 Malignant Neoplasm Ovary V62.82 Bereavement Uncomplicated Office Visit 05/24/2013 [facility] Lacy Tea, 272.0 Hypercholesterolemia Pure 10:40a Medicine - M.D., FACP [facility] V04.81 Need For Prophylactic Vaccination & Inoculation/Influenza Office Visit 10/19/2012 10:40a [facility] Amanda Sutton, 599.0 UTI Urinary Tract Medicine - N.P. Infection Site Not [facility] Spec Office Visit 08/12/2012 4:00p [facility] Lacy Tea, 784.7 Epistaxis Medicine - M.D., FACP [facility] Office Visit 10/01/2011 10:40a [facility] Lacy Tea, V70.0 Examination Medicine - M.D., FACP General Medical [facility] Routine AT Health Care Facility 272.0 Hypercholesterolemia Pure V76.10 Screening For Malignant Neoplasm Breast 733.90 Bone & Cartilage Disorder Unspec 300.00 Anxiety State Unspec 564.00 Constipation Unspecified Office Visit 01/29/2011 3:20p DO Not Use Lacy Tea, 486 Pneumonia Juliette Kuhn, FACP Organism Unspec Office Visit 11/14/2010 3:45p DO Not Use Lacy Tea, 112.0 Candidiasis Mouth Juliette Kuhn, FACP Office Visit 06/12/2010 9:30a DO Not Use Lacy Tea, 466.0 Bronchitis Acute Juliette Kuhn, FACP V04.81 Need For Prophylactic Vaccination & Inoculation/Influenza Office Visit 02/13/2010 10:45a DO Not Use Lacy Tea, V70.0 Examination Juliette Kuhn, FACP General Medical Routine AT Health Care Facility 183.0 Malignant Neoplasm Ovary 300.00 Anxiety State Unspec 401.1 Hypertension Benign Office Visit 09/26/2009 DO Not Use Lacy Tea, 733.00 Osteoporosis 9:30a Juliette Kuhn, FACP Unspec Office Visit 01/17/2009 DO Not Use Lacy Tea, V70.0 Examination 9:15a Juliette Kuhn, FACP General Medical Routine AT Health Care Facility 272.0 Hypercholesterolemia Pure 401.1 Hypertension Benign Office 11/07/2008 DO Not Use Lacy 272.4 Hyperlipidemia Other Visit 9:00a Juliette Metcalf M.D., Unspec FACP Office 08/09/2008 DO Not Use Lacy 272.0 Hypercholesterolemia Visit 9:00a Juliette Metcalf M.D., Pure FACP Office 03/24/2008 DO Not Use Lacy 706.2 Sebaceous Cyst Visit 12:15p Juliette Metcalf M.D., FACP Office 02/09/2008 DO Not Use Lacy 272.0 Hypercholesterolemia Visit 1:45p Lobster ManChristopher Metcalf M.D., Pure FACP 401.1 Hypertension Benign 719.47 Pain Joint Ankle & Foot Office Visit 01/12/2008 9:15a DO Not Use Lacy Tea, V70.0 [facility] General [facility] Routine AT [facility] 183.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 272.0 Hypercholesterolemia Pure 796.2 Blood Pressure Reading Elevated W/O Hypertension V05.8 Single Disease Spec Other Vaccination & Inoculation Office Visit 03/03/2007 10:30a DO Not Use Lacy Tea, 183.0 Malignant Juliette Kuhn, FACP Neoplasm Ovary 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 at [facility] - Flako Vicente M.D.I35.1 Nonrheumatic aortic ( valve) insufficiencyNew Orders:Echocardiogram, Ordered: 02/12/19Follow up:1 yearI10 Essential (primary) hypertension
[2019-02-21 19:28] VITALS: BP 161/70
[2019-02-21] MEDS ORDERED: Acetaminophen TAB* 325 MG PO ONE (19:34)
--- NOTE | 2019-02-21 19:48 | UC ---
HPI Febrile Illness - HPI Summary HPI Summary: 84-year-old female presents reporting history of intermittent fever. Patient states 3 nights ago she had some general malaise and right ear pain, took her temperature and noted it was elevated at 100.3 F. States she took some NyQuil that evening and when she woke up in the morning her symptoms and fever had resolved. That day she went about her normal activities with no problems and then in the evening she again began to feel generally not well and noticed some swelling and tenderness of the lymph nodes in the right side of her neck and she again had a fever of 100.3 F. states she again took some NyQuil and when she woke up the next morning her fever and symptoms. Again resolved. Today around noon states she again began to have some general malaise, took her temperature and it was again elevated at 100.3 F. Denies headache, neck pain, ear pain, nasal congestion, runny nose, sore throat, chest pain, shortness of breath, cough, abdominal pain, back or flank pain, nausea, vomiting, diarrhea, dysuria, frequency, urgency, or hematuria. - History of Current Complaint Chief Complaint: UCGeneralIllness Time Seen by Provider: 02/21/19 19:32 Hx Obtained From: Patient Hx Last Menstrual Period: post Pain Intensity: 4 - Allergy/Home Medications Allergies/Adverse Reactions: Allergies Allergy/AdvReac Type Severity Reaction Status Date / Time No Known Allergies Allergy Verified 02/21/19 19:28 PMH/Surg Hx/FS Hx/Imm Hx Cardiovascular History: Hypertension Psychological History: Depression - Surgical History Surgical History: Yes Surgery Procedure, Year, and Place: total hysterectomy,[facility] [place] D&C - Family History Known Family History: Positive: Cardiac Disease, Other - breast and lung CA - Social History Occupation: Retired Lives: Alone Alcohol Use: Occasionally Substance Use Type: None Smoking Status (MU): Former Smoker When Did the Patient Quit Smoking/Using Tobacco: when she was 17 yrs old, quit in - Immunization History Most Recent Influenza Vaccination: 2017 Review of Systems All Other Systems Reviewed And Are Negative: Yes Constitutional: Positive: Fever, Chills, Fatigue Skin: Negative: Rash Eyes: Negative: Drainage, Eye Redness ENT: Positive: Sore Throat, Ear Ache. Negative: Nasal Discharge, Sinus Congestion, Sinus Pain/Tenderness Respiratory: Negative: Shortness Of Breath, Cough Cardiovascular: Negative: Palpitations, Chest Pain Gastrointestinal: Negative: Abdominal Pain, Vomiting, Diarrhea, Nausea Genitourinary: Negative: Dysuria, Hematuria, Frequency, Urgency Musculoskeletal: Negative: Arthralgia, Myalgia Neurological: Negative: Headache Is Patient Immunocompromised?: No Physical Exam - Summary Physical Exam Summary: GENERAL APPEARANCE: Well developed, well nourished, alert and cooperative, and appears to be in no acute distress. EYES: Conjunctiva clear. No drainage. EARS: External auditory canals and tympanic membranes clear, hearing grossly intact. NOSE: No nasal discharge. THROAT: Mild pharyngeal erythema. No tonsilar inflammation, swelling, exudate, or lesions. Uvula midline. NECK: Neck supple, non-tender. Mild anterior cervical lymphadenopathy. CARDIAC: Normal S1 and S2. No S3, S4 or murmurs. Rhythm is regular. There is no peripheral edema, cyanosis or pallor. Extremities are warm and well perfused. Capillary refill is less than 2 seconds. Peripheral pulses intact. LUNGS: Few scattered fine crackles in the left base. ABDOMEN: Positive bowel sounds. Soft, nondistended, nontender. No guarding or rebound. No masses or hepatosplenomegally. MUSKULOSKELETAL: ROM intact to all extremities. No joint erythema or tenderness. Normal muscular development. Normal gait. SKIN: Skin normal color, texture and turgor with no lesions or eruptions. Triage Information Reviewed: Yes Vital Signs: Initial Vital Signs Temp 101.6 F 02/21/19 19:18 Pulse 91 02/21/19 19:18 Resp 17 02/21/19 19:18 BP 161/70 02/21/19 19:18 Pulse Ox 96 02/21/19 19:18 Vital Signs Reviewed: Yes Diagnostics - Radiology No standard instances Radiology Interpretation Completed By: ED Physician Course/Dx - Course Course Of Treatment: 84-year-old female presents reporting history of intermittent fever. Patient states 3 nights ago she had some general malaise and right ear pain, took her temperature and noted it was elevated at 100.3 F. States she took some NyQuil that evening and when she woke up in the morning her symptoms and fever had resolved. That day she went about her normal activities with no problems and then in the evening she again began to feel generally not well and noticed some swelling and tenderness of the lymph nodes in the right side of her neck and she again had a fever of 100.3 F. states she again took some NyQuil and when she woke up the next morning her fever and symptoms. Again resolved. Today around noon states she again began to have some general malaise, took her temperature and it was again elevated at 100.3 F. Denies headache, neck pain, ear pain, nasal congestion, runny nose, sore throat, chest pain, shortness of breath, cough, abdominal pain, back or flank pain, nausea, vomiting, diarrhea, dysuria, frequency, urgency, or hematuria. At triage patient was noted to have an elevated temperature of 101.6 F. She was hypertensive and otherwise vital signs were stable. Patient had some mild pharyngeal erythema without tonsillar swelling or exudate, mild cervical lymphadenopathy, had a few fine crackles noted in the left base, and exam was otherwise unremarkable. Rapid strep was negative. [id number] urinalysis showed 1+ protein and trace blood. Preliminary reading of the chest x-ray showed no acute pathology when compared to previous x-ray from 09/08/2017. I reviewed these findings with the patient. Recommended that she have her urine rechecked by her PCP since there was trace blood present. We discussed that there was no obvious source for her fever and that this could be from a viral syndrome however I cannot fully rule out other causes. I offered to obtain some basic lab work tonight or have her go to the emergency room for the lab work however the patient declined at this time. I encouraged her to follow up with her primary care provider in 1-2 days for recheck of her symptoms. She is to call tomorrow morning for an appointment. Anticipatory guidance and warning symptoms were reviewed with the patient. She verbalizes understanding and agrees with plan of care. - Febrile Illness Differential Diagnoses: Pneumonia, Other: - URI, pharyngitis, otitis media - Diagnoses Provider Diagnosis: Viral syndrome Discharge - Sign-Out/Discharge Documenting (check all that apply): Patient Departure All imaging exams completed and their final reports reviewed: No - Discharge Plan Condition: Stable Disposition: HOME Patient Education Materials: Viral Syndrome (ED) Referrals: Christi Richmond MD [Primary Care Provider] - 1 Day Additional Instructions: The rapid strep test performed in the clinic today was negative. The urine test showed a trace amount of blood but no evidence of an infection. I would recommend that you have this repeated by your primary care provider at a later time. Your chest x-ray showed no acute changes from a previous x-ray performed on 09/08/2017. I suspect that your fever may be related to a viral syndrome. Get plenty of rest. Drink plenty of fluids to avoid dehydration especially if you are running fever. Continue to take acetaminophen (Tylenol) according to directions as needed for fever or pain. Follow-up with your primary care provider in 1-2 days for recheck of your symptoms. Call tomorrow for an appointment. Seek immediate medical attention in the emergency room if you have a persistent fever greater than 100.5 F despite taking acetaminophen, you develop chest pain , shortness of breath, severe abdominal pain, persistent vomiting, become weak or dizzy, or have any worsening of symptoms. - Billing Disposition and Condition Condition: STABLE Disposition: Home - Attestation Statements Provider Attestation: I was available for consult. This patient was seen by the KARISHMA. The patient care was discussed with me and I agree with plan of care. Patient was not seen by or examined by me -Inder Barker MD
--- NOTE | 2019-02-22 09:01 | UC ---
- Progress Note Progress Note: CXR: IMPRESSION: STABLE LINEAR DENSITY LOCALIZED TO THE RIGHT MIDDLE LOBE COULD BE ATELECTASIS VERSUS SCARRING IN THIS OTHERWISE NONACUTE CHEST X-RAY. Wet read correct Course/Dx - Diagnoses Provider Diagnoses: Viral syndrome Discharge - Sign-Out/Discharge Documenting (check all that apply): Post-Discharge Follow Up All imaging exams completed and their final reports reviewed: Yes - Discharge Plan Condition: Stable Disposition: HOME Patient Education Materials: Viral Syndrome (ED) Referrals: Christi Richmond MD [Primary Care Provider] - 1 Day Additional Instructions: The rapid strep test performed in the clinic today was negative. The urine test showed a trace amount of blood but no evidence of an infection. I would recommend that you have this repeated by your primary care provider at a later time. Your chest x-ray showed no acute changes from a previous x-ray performed on 09/08/2017. I suspect that your fever may be related to a viral syndrome. Get plenty of rest. Drink plenty of fluids to avoid dehydration especially if you are running fever. Continue to take acetaminophen (Tylenol) according to directions as needed for fever or pain. Follow-up with your primary care provider in 1-2 days for recheck of your symptoms. Call tomorrow for an appointment. Seek immediate medical attention in the emergency room if you have a persistent fever greater than 100.5 F despite taking acetaminophen, you develop chest pain , shortness of breath, severe abdominal pain, persistent vomiting, become weak or dizzy, or have any worsening of symptoms. - Billing Disposition and Condition Condition: STABLE Disposition: Home
--- NOTE | 2019-02-22 15:18 | UC ---
- Progress Note Progress Note: Patient Name: ZENA POWER Medical Record#: [id number] Ordering Physician: Richard Bragg NP Acct.#: [id number] : 1935 Age: 84 Sex: F Location: [facility] Exam Date: 02/21/191941 ADM Status: DEP ER Order Information: CHEST PA LAT 2 VWS Accession Number: [id number] CPT: 72771 INDICATION: Fever and fatigue COMPARISON: Chest x-ray August 29, 2017 TECHNIQUE: PA and lateral views of the chest were obtained. FINDINGS: The heart and mediastinum are normal in size and contour. Again seen is a linear density localized to the right middle lobe similar to the prior chest x-ray. Otherwise the lungs are grossly clear. There is no evidence of large pleural effusion. Visualized bones are normal for the patient's age. There is no radiographic evidence of free air beneath the diaphragm IMPRESSION: STABLE LINEAR DENSITY LOCALIZED TO THE RIGHT MIDDLE LOBE COULD BE ATELECTASIS VERSUS SCARRING IN THIS OTHERWISE NONACUTE CHEST X-RAY. R0 Preliminary Imaging Read R0 <Electronically signed by Adonis Smith MD in [facility]> 02/22/19 0753 Course/Dx - Diagnoses Provider Diagnoses: Viral syndrome Discharge - Sign-Out/Discharge Documenting (check all that apply): Patient Departure All imaging exams completed and their final reports reviewed: Yes - Discharge Plan Condition: Stable Disposition: HOME Patient Education Materials: Viral Syndrome (ED) Referrals: Christi Richmond MD [Primary Care Provider] - 1 Day Additional Instructions: The rapid strep test performed in the clinic today was negative. The urine test showed a trace amount of blood but no evidence of an infection. I would recommend that you have this repeated by your primary care provider at a later time. Your chest x-ray showed no acute changes from a previous x-ray performed on 09/08/2017. I suspect that your fever may be related to a viral syndrome. Get plenty of rest. Drink plenty of fluids to avoid dehydration especially if you are running fever. Continue to take acetaminophen (Tylenol) according to directions as needed for fever or pain. Follow-up with your primary care provider in 1-2 days for recheck of your symptoms. Call tomorrow for an appointment. Seek immediate medical attention in the emergency room if you have a persistent fever greater than 100.5 F despite taking acetaminophen, you develop chest pain , shortness of breath, severe abdominal pain, persistent vomiting, become weak or dizzy, or have any worsening of symptoms. - Billing Disposition and Condition Condition: STABLE Disposition: Home
== END 2019-02-21 20:35 | disposition home or self-care (01) ==
LOC: UCEAST 19:14
DX: B34.9 Viral infection, unspecified (principal); Z87.891 Personal history of nicotine dependence
CPT/HCPCS: 71046; 81003; 87651; 99212; A9270-GY; G0463